=== PATIENT | female | born 1935 | race Caucasian/White ===

== ENCOUNTER 2017-03-24 04:13 | Emergency (ER) | payer OTHER ==
--- NOTE | 2017-03-24 04:25 | EDPHY ---
H & P Stated Complaint: sob Time Seen by Provider: 03/24/17 04:16 HPI/ROS: HPI The patient presents with shortness of breath which began about 1 hour prior to presentation. She said she awoke and was making her breakfast when she felt short of breath. She called 911. She said the shortness of breath started suddenly and has been constant. She uses Advair daily for COPD but denies having a prescription for albuterol. She does not have any chest pain, swelling in her legs, orthopnea. She has not had a cough, runny nose, sore throat. She says her COPD does get worse in the spring and fall.. REVIEW OF SYSTEMS Constitutional: No fever, no chills. Eyes: No discharge. ENT: No sore throat. Cardiovascular: No chest pain, no palpitations. Respiratory: No cough, positive for shortness of breath. Gastrointestinal: No abdominal pain, no vomiting. Genitourinary: No hematuria. Musculoskeletal: No back pain. Skin: No rashes. Neurological: No headache. PMHx: COPD PHYSICAL General Appearance: Alert, no distress Eyes: Pupils equal and round no pallor or injection ENT, Mouth: Mucous membranes moist Respiratory: There are no retractions, lungs are clear to auscultation Cardiovascular: Regular rate and rhythm Gastrointestinal: Abdomen is soft and non-tender, no masses, bowel sounds normal Neurological: A&O, moves all extremities Skin: Warm and dry, no rashes Musculoskeletal: Neck is supple non tender Extremities: symmetrical, full range of motion Psychiatric: Patient is oriented X 3, there is no agitation Source: Patient, EMS - Personal History Current Tetanus Diphtheria and Acellular Pertussis (TDAP): Unsure - Medical/Surgical History Hx Asthma: Yes Hx Chronic Respiratory Disease: No Hx Diabetes: No Hx Cardiac Disease: No Hx Renal Disease: No Hx Cirrhosis: No Hx Alcoholism: No Hx HIV/AIDS: No Hx Splenectomy or Spleen Trauma: No Other PMH: COPD, vaginal deliveries - Social History Smoking Status: Never smoked Constitutional: Initial Vital Signs Temperature (C) 36.8 C 03/24/17 04:18 Heart Rate 77 03/24/17 04:18 Respiratory Rate 16 03/24/17 04:18 Blood Pressure 187/93 H 03/24/17 04:18 O2 Sat (%) 95 03/24/17 04:18 O2 Delivery Mode Room Air Allergies/Adverse Reactions: Penicillins Allergy (Verified 03/24/17 04:17) Home Medications: Medication Instructions Recorded Flonase Nasal [place] 03/24/17 Medical Decision Making Differential Diagnosis: This is an 81-year-old female who presents from home, brought in by ambulance for an episode of shortness of breath which occurred this morning upon awakening. This is not associated with any wheezing, coughing, fever, chest pain, fluid overload. Differential diagnosis includes COPD exacerbation, asthma exacerbation, pneumonia. Doubt PE given no tachycardia or hypoxia. In the emergency department, the patient's blood pressure was elevated, she denies any history of hypertension. Patient was given a DuoNeb and afterwards was noted to be hyperventilating, she was given a dose of Ativan with improvement in her symptoms. Labs were checked and were unremarkable, chest x-ray showed no infiltrate. She was able to walk around the emergency department with no respiratory distress in the room air saturation of 94%. I feel she is suffering from a mild COPD exacerbation, possibly triggered by seasonal allergies. She will be discharged home with albuterol. I feel her exacerbation is mild enough that she does not require antibiotics or steroids. - Data Points Laboratory Results: Laboratory Results 03/24/17 04:12 03/24/17 04:12 03/24/17 03/24/17 04:12 04:12 WBC 25.35 10^3/uL H 10^3/uL (3.80-9.50) RBC 4.72 10^6/uL 10^6/uL (4.18-5.33) Hgb 13.1 g/dL g/dL (12.6-16.3) Hct 40.6 % % (38.0-47.0) MCV 86.0 fL fL (81.5-99.8) MCH 27.8 pg L pg (27.9-34.1) MCHC 32.3 g/dL L g/dL (32.4-36.7) RDW 15.9 % H % (11.5-15.2) Plt Count 132 10^3/uL L 10^3/uL (150-400) MPV 10.7 fL fL (8.7-11.7) Neut % (Auto) Not Reported Lymph % (Auto) Not Reported [place] % (Auto) Not Reported Eos % (Auto) Not Reported Baso % (Auto) Not Reported Nucleat RBC Rel Count 0.0 % % (0.0-0.2) Absolute Neuts (auto) Not Reported Absolute Lymphs (auto) Not Reported Absolute Monos (auto) Not Reported Absolute Eos (auto) Not Reported Absolute Basos (auto) Not Reported Absolute Nucleated RBC 0.00 10^3/uL 10^3/uL (0-0.01) Immature Gran % Not Reported Seg Neutrophils % 6 % % Band Neutrophils % 1 % % Lymphocytes % 92 % % Eosinophils % 1 % % Immature Gran # Not Reported Absolute Seg Neuts 1.52 10^/uL L 10^/uL (1.70-6.50) Absolute Band Neuts 0.25 10^3/uL 10^3/uL (0.00-0.70) Absolute Lymphocytes 23.32 10^3/uL H 10^3/uL (1.00-3.00) Absolute Eosinophils 0.25 10^3/uL 10^3/uL (0.03-0.40) RBC/WBC/PLT Morphology NORMAL (NORMAL) Atypical Lymphocytes 1+ H Platelet Estimate DECREASED L (ADEQ) Smear Review By Pending Sodium 141 mEq/L mEq/L (134-144) Potassium 4.3 mEq/L mEq/L (3.5-5.2) Chloride 107 mEq/L mEq/L (97-110) Carbon Dioxide 21 mEq/l L mEq/l (22-31) Anion Gap 13 mEq/L mEq/L (8-16) BUN 25 mg/dL H mg/dL (7-23) Creatinine 0.7 mg/dL mg/dL (0.6-1.0) Estimated GFR > 60 Glucose 95 mg/dL mg/dL (70-100) Calcium 9.9 mg/dL mg/dL (8.5-10.4) Total Bilirubin 0.5 mg/dL mg/dL (0.1-1.4) AST 34 IU/L IU/L (14-46) ALT 39 IU/L IU/L (9-52) Alkaline Phosphatase 66 IU/L IU/L (38-126) Total Protein 6.3 g/dL g/dL (6.3-8.2) Albumin 4.1 g/dL g/dL (3.5-5.0) Medications Given: Discontinued Medications Albuterol/Ipratropium (Duoneb) 3 ml IH EDNOW ONE Stop: 03/24/17 04:39 Last Admin: 03/24/17 04:46 Dose: 3 ml Lorazepam (Ativan Injection) 0.5 mg IVP EDNOW ONE Stop: 03/24/17 04:55 Last Admin: 03/24/17 04:55 Dose: 0.5 mg Departure - Departure Disposition: Home, Routine, Self-Care Clinical Impression: Chronic obstructive pulmonary disease with acute exacerbation Condition: Good Instructions: Albuterol (By breathing), Dyspnea (ED) Additional Instructions: Please return to the emergency room if your worse in any way. You can follow up with your regular doctor in 1-2 days as needed. Please take the albuterol as needed if you have any difficulty breathing. Use 1-2 puffs of the albuterol every 4-6 hours as needed for shortness of breath. Referrals: Patient,NotPresent [Unknown] - As per Instructions
[2017-03-24] MEDS ORDERED: IPRATROPIUM/ALBUTEROL 3 ML DEYVIAL IH ONE (04:38)
[2017-03-24 04:46] LABS: ADD MORPH? NO; ADD SCAN? YES; ATYPICAL LYMPHOCYTE FLAG 10 (0-99); FRAGMENT RBC FLAG 0 (0-99); HEMATOCRIT 40.6 % (38.0-47.0); HEMOGLOBIN 13.1 g/dL (12.6-16.3); LEFT SHIFT FLG 0 (0-99); LIPEMIA HEMOLYSIS FLAG 80 (0-99); MEAN CELL HEMOGLOBIN 27.8 pg (27.9-34.1); MEAN CELL HEMOGLOBIN CONCENTR. 32.3 g/dL (32.4-36.7); MEAN PLATELET VOLUME 10.7 fL (8.7-11.7); PLATELET CLUMPS FLAG 0 (0-99); PLATELET COUNT 132 10^3/uL (150-400); RED BLOOD CELL COUNT 4.72 10^6/uL (4.18-5.33); RED CELL DISTRIBUTION WIDTH 15.9 % (11.5-15.2)
[2017-03-24] MEDS ORDERED: LORazepam 2 MG/ML INJ ONE (04:52)
[2017-03-24 04:54] LABS: ALANINE AMINOTRANSFERASE 39 IU/L (9-52); ALBUMIN 4.1 g/dL (3.5-5.0); ALKALINE PHOSPHATASE 66 IU/L (38-126); ANION GAP 13 mEq/L (8-16); ASPARTATE AMINOTRANSFERASE 34 IU/L (14-46); BILIRUBIN,TOTAL 0.5 mg/dL (0.1-1.4); CALCIUM 9.9 mg/dL (8.5-10.4); CARBON DIOXIDE 21 mEq/l (22-31); CHLORIDE 107 mEq/L (97-110); CREATININE 0.7 mg/dL (0.6-1.0); GLOMERULAR FILTRATION RATE > 60; GLUCOSE 95 mg/dL (70-100); POTASSIUM 4.3 mEq/L (3.5-5.2); SODIUM 141 mEq/L (134-144); TOTAL PROTEIN 6.3 g/dL (6.3-8.2)
[2017-03-24] MEDS ORDERED: LORazepam 2 MG/ML INJ IVP ONE (04:54)
[2017-03-24 05:43] LABS: ADD DIFF? YES; SCAN POSITIVE
[2017-03-24 05:46] LABS: PLATELET ESTIMATE DECREASED (ADEQ)
[2017-03-24] MEDS ORDERED: ALBUTEROL INH PREPACK MDI TAKEHOME ONE (05:47)
[2017-03-24 06:52] VITALS: BP 151/77; PULSE 94; RESP 18; TEMP 97.9; O2SAT 95
== END 2017-03-24 07:12 | disposition home or self-care (01) ==
LOC: EDUNIT#
DX: J44.1 Chronic obstructive pulmonary disease with (acute) exacerbation (principal)
CPT/HCPCS: 71020; 96374; 99284; J2060

== ENCOUNTER 2017-05-09 07:09 | Emergency (ER) | payer OTHER ==
[2017-05-09 07:14] VITALS: O2SAT 93
--- NOTE | 2017-05-09 07:29 | EDPHY ---
H & P Time Seen by Provider: 05/09/17 07:28 HPI/ROS: CHIEF COMPLAINT: Right hip pain HISTORY OF PRESENT ILLNESS: Patient had a fall 5 days ago, presents with worsening pain in the right hip. She lost her balance getting up off the bed and caught herself but did not actually fall or impact the ground. She saw Pérez Cortes her primary care provider yesterday but today the pain is worse. She is still able to walk and is using topical ice application, and has adequate pain control but still had symptoms. A little bit worse with walking. Does not radiate. Started just after her fall. REVIEW OF SYSTEMS: Eye: no change in vision ENT: no sore throat Cardiac: No chest pain Pulmonary: Not short of breath Abdomen: No vomiting or diarrhea Musculoskeletal: HPI Skin: no rash Neuro: No weakness or numbness in the right leg or foot Constitutional: no fever : no urinary symptoms A comprehensive 10 point review of systems is otherwise negative aside from elements mentioned in the history of present illness. PAST MEDICAL HISTORY: COPD Social history: Here with her son General Appearance: Alert and conversant, cooperative. Eyes: No scleral icterus. ENT, Mouth: Normal mucous membranes. Respiratory: Normal respiratory effort, breath sounds equal, lungs are clear to auscultation. Cardiovascular: Regular rate and rhythm. Normal right foot dorsalis pedis pulse. Gastrointestinal: Abdomen is soft and non tender. No inguinal bulge or hernia palpated. Neurological: Alert and oriented x3. Normally conversant. Face symmetric, normal movement and sensation in all extremities. Normal dorsiflexion and plantar flexion of the right foot. Toes downgoing bilaterally. Skin: Warm and dry, no rashes. No laceration over the area of injury. No bruising visible. No redness or lymphangitis. Not warm to the touch. Musculoskeletal: No tenderness to pelvic compression. No bony tenderness on either lower extremity. No right hip pain on rotation or axial loading. She has some tenderness to palpation in the muscles of the right gluteal region. Compartments in the right leg are soft. Psychiatric: Not agitated. Emergency Department course/MDM: Right hip x-ray personally interpreted as normal. Clinical exam does not lead to high suspicion for occult fracture she does not have right hip pain with rotation or axial loading. Likely has muscle strain in the right gluteal region. Symptomatic treatment discussed including ice, acetaminophen, okay to use lidocaine patches which she has at home from a previous injury. Heart rate 100, likely due to discomfort from pain. Patient and son would like to go home which I think is reasonable. Smoking Status: Never smoked Constitutional: Initial Vital Signs Temperature (C) 37.1 C 05/09/17 07:12 Heart Rate 113 H 05/09/17 07:12 Respiratory Rate 16 05/09/17 07:12 Blood Pressure 141/86 H 05/09/17 07:12 O2 Sat (%) 93 05/09/17 07:12 O2 Delivery Mode Room Air Allergies/Adverse Reactions: Penicillins Allergy (Verified 05/09/17 07:15) Home Medications: Medication Instructions Recorded Advair 05/09/17 Sleeping Aid 05/09/17 Medical Decision Making - Diagnostics Imaging Results: Imaging Impressions Hip X-Ray 05/09/17 07:29 Impression: No right hip fracture identified. Differential Diagnosis: Differential considered including but not limited to hip fracture, femur fracture, hip contusion, muscle strain, compartment syndrome, sciatica, septic joint. Departure - Departure Disposition: Home, Routine, Self-Care Clinical Impression: Strain of muscle of right hip Qualifiers: Encounter type: initial encounter Qualified Code(s): S76.011A - Strain of muscle, fascia and tendon of right hip, initial encounter Condition: Good Instructions: Muscle Strain (ED) Additional Instructions: OK to use your lidocaine patches as discussed, which you have. Followup with Pérez Cortes in 48-72 hours if still symptomatic. Referrals: Pérez Cortes PA [Primary Care Provider] - As per Instructions
[2017-05-09 08:28] VITALS: BP 155/102; PULSE 100; RESP 18; TEMP 97.2
== END 2017-05-09 08:32 | disposition home or self-care (01) ==
DX: S76.011A Strain of muscle, fascia and tendon of right hip, initial encounter (principal); W06.XXXA Fall from bed, initial encounter; Y99.8 Other external cause status; Y93.89 Activity, other specified; J44.9 Chronic obstructive pulmonary disease, unspecified

== ENCOUNTER 2017-07-15 09:22 | Inpatient (IN) | payer OTHER ==
--- NOTE | 2017-07-15 09:33 | EDPHY ---
H & P Time Seen by Provider: 07/15/17 09:22 HPI/ROS: CHIEF COMPLAINT: Altered mental status HISTORY OF PRESENT ILLNESS: Patient arrives by EMS with decreased mentation today. Apparently she fell yesterday. Patient has only complaints of feeling comfortable and chest and little bit of trouble breathing. On arrival oxygen saturation is 80s. Previously interview systems unobtainable because of the patient's decreased mentation. REVIEW OF SYSTEMS: ENT: no sore throat Cardiac: no chest pain or syncope Pulmonary: HI no cough Abdomen: no vomiting, diarrhea, abdominal pain Musculoskeletal: no back pain neck pain Skin: no rash ROS otherwise unobtainable because of decreased mentation PAST MEDICAL HISTORY: [facility] includes chronic leukemia, anemia, COPD, osteoporosis. Social history: Son and grandson here with the patient shortly after arrival General Appearance: Alert and conversant, cooperative. Eyes: No scleral icterus. ENT, Mouth: Dry mucous membranes Respiratory: Tachypneic bilateral rhonchi Cardiovascular: Regular rate and rhythm. Tachycardic. Gastrointestinal: Abdomen is soft and non tender. Neurological: Alert, face symmetric. Generally weak all over but can move extremities. Skin: Warm and dry, no rashes. Musculoskeletal: No peripheral edema. Lower cervical spine tender palpation others no extremity or spinal tenderness. Psychiatric: Not agitated. Emergency Department course/MDM: Patient appears quite ill. Supplemental oxygen applied for hypoxemia. Plan for CT of the head cervical spine with a fall and altered mental status and a little bit neck tenderness to palpation. Chest x-ray and labs to include sepsis screen. 1054: Head and cervical spine negative per Dr. Gaspar, results discussed with the patient's son, cervical spine cleared clinically at this time. She is clear she does not want mechanical ventilation or central line placement or any interventional procedures. She would like a trial of IV fluids oxygen and antibiotics. Fluid hydration, IV Levaquin, admission to her primary care practice. Does not appear to have severe sepsis or septic shock. Does meet SIRS sepsis criteria. Smoking Status: Never smoked Constitutional: Initial Vital Signs Temperature (C) 36.7 C 07/15/17 09:39 Heart Rate 132 H 07/15/17 09:39 Respiratory Rate 26 H 07/15/17 09:39 Blood Pressure 201/118 H 07/15/17 09:39 O2 Sat (%) 82 L 07/15/17 09:39 O2 Delivery Mode Nasal [place] O2 (L/minute) 4 Allergies/Adverse Reactions: Penicillins Allergy (Verified 05/09/17 07:15) Home Medications: Medication Instructions Recorded Acetaminophen [Tylenol 325mg (*)] 650 mg PO Q4H PRN MDD 4 gm 07/15/17 Calcium Carbonate [Tums 500MG (*)] 500 mg PO DAILY 07/15/17 Cyanocobalamin [Vitamin B12 (*)] 1,000 mcg PO DAILY 07/15/17 Diazepam [Valium 2 MG (*)] 2 mg PO Q12H PRN 07/15/17 FOLIC ACID 0.4 mg PO DAILY 07/15/17 Fluticasone Nasal [Flonase Nasal 1 sprays [place] DAILY 07/15/17 [place] (RX)] Fluticasone/Salmeter 250/50Mcg 1 puffs IH BID 07/15/17 [Advair 250/50 (*)] Hydrocodone/Acetaminophen [[place] 0.5 each PO Q8H PRN 07/15/17 5/325 (*)] Lidocaine 5% [Lidoderm 5% Patch 1 ea TD DAILY 07/15/17 (*)] OLANZapine [Zyprexa] 15 mg PO HS 07/15/17 [place]-3 Fatty Acids [Fish Oil 1000 1,000 mg PO DAILY 07/15/17 mg (*)] Patch Removal 1 ea TD DAILY@199907/15/17 Sennosides [Senna Lax] 8.6 mg PO DAILY 07/15/17 Zinc Gluconate [Zinc Chelated 50mg 50 mg PO DAILY 07/15/17 (*)] Medical Decision Making - Diagnostics EKG Interpretation: 12-lead EKG interpreted by me; official reading is in trace master. My interpretation is sinus tachycardia with APCs and left anterior fascicular block , LVH Imaging Results: Imaging Impressions Cervical Spine CT 07/15/17 09:34 Impression: 1. No definite intracranial hemorrhage. 2. Elderly brain with atrophy and probable white matter small vessel disease. CT Cervical Spine Without Contrast History: Trauma, neck pain. Technique: Multislice helical CT through the cervical spine without contrast from the skull base to T1. Soft tissue and bone evaluation is performed. Sagittal and coronal reconstructions are obtained and reviewed. Dose reduction techniques were utilized. Findings: Cervical alignment is anatomic. No fracture or dislocation is identified. The relationship between skull base and C1 is normal. The C1-C2 articulation is normal. The odontoid process is normal. The cervical thoracic junction is normal. Apical pleural thickening is noted on the right side. Soft tissue window evaluation does not show evidence of epidural or prevertebral hematoma. Multilevel degenerative changes are seen with disk space loss and bony hypertrophy. Impression: 1. Negative for fracture. 2. Multilevel spondylosis. 3. Apical pleural thickening on the right side. Results called and discussed with LAURA ACPUTO M.D. on 07/15/2017 10:49 Chest X-Ray 07/15/17 09:34 Impression: 1. Development of left lower lobe pneumonia superimposed upon presumed COPD. 2. Increase in compression deformity of T11. Results called and discussed with LAURA CAPUTO M.D. on 07/15/2017 at 10:[address] 07/15/17 09:34 Impression: 1. No definite intracranial hemorrhage. 2. Elderly brain with atrophy and probable white matter small vessel disease. CT Cervical Spine Without Contrast History: Trauma, neck pain. Technique: Multislice helical CT through the cervical spine without contrast from the skull base to T1. Soft tissue and bone evaluation is performed. Sagittal and coronal reconstructions are obtained and reviewed. Dose reduction techniques were utilized. Findings: Cervical alignment is anatomic. No fracture or dislocation is identified. The relationship between skull base and C1 is normal. The C1-C2 articulation is normal. The odontoid process is normal. The cervical thoracic junction is normal. Apical pleural thickening is noted on the right side. Soft tissue window evaluation does not show evidence of epidural or prevertebral hematoma. Multilevel degenerative changes are seen with disk space loss and bony hypertrophy. Impression: 1. Negative for fracture. 2. Multilevel spondylosis. 3. Apical pleural thickening on the right side. Results called and discussed with LAURA CAPUTO M.D. on 07/15/2017 10:49 Differential Diagnosis: Differential considered including but not limited to UTI, pneumonia, intracranial bleed, metabolic abnormality. Consult/Admit Bed Type: [place] [id number] Critical Care Time: Critical care time spent by me, Dr. Caputo, exclusively with the care of this patient was 30 minutes, exclusive of PA or [employer] time and exclusive of separate procedures. The organ system at risk was infectious and I ordered IV fluids, multiple diagnostic, supplemental oxygen, IV antibiotics, consultation with admitting provider to stabilize the patient and prevent worsening of the patient 's condition. - Data Points Laboratory Results: Laboratory Results 07/15/17 09:30 07/15/17 09:30 07/15/17 07/15/17 07/15/17 09:40 09:30 09:30 WBC RBC Hgb Hct MCV MCH MCHC RDW Plt Count MPV Neut % (Auto) Lymph % (Auto) [place] % (Auto) Eos % (Auto) Baso % (Auto) Nucleat RBC Rel Count Absolute Neuts (auto) Absolute Lymphs (auto) Absolute Monos (auto) Absolute Eos (auto) Absolute Basos (auto) Absolute Nucleated RBC Immature Gran % Immature Gran # PT 14.8 SEC SEC (12.0-15.0) INR 1.14 (0.83-1.16) APTT 23.9 SEC SEC (23.0-38.0) VBG Lactic Acid 1.2 mmol/L mmol/L (0.7-2.1) Sodium 142 mEq/L mEq/L (134-144) Potassium 3.7 mEq/L mEq/L (3.5-5.2) Chloride 99 mEq/L mEq/L (97-110) Carbon Dioxide 25 mEq/l mEq/l (22-31) Anion Gap 18 mEq/L H mEq/L (8-16) BUN 19 mg/dL mg/dL (7-23) Creatinine 0.7 mg/dL mg/dL (0.6-1.0) Estimated GFR > 60 Glucose 139 mg/dL H mg/dL (70-100) Calcium 9.5 mg/dL mg/dL (8.5-10.4) Total Bilirubin 1.0 mg/dL mg/dL (0.1-1.4) 07/15/17 09:30 WBC 18.04 10^3/uL H 10^3/uL (3.80-9.50) RBC 4.69 10^6/uL 10^6/uL (4.18-5.33) Hgb 13.7 g/dL g/dL (12.6-16.3) Hct 40.4 % % (38.0-47.0) MCV 86.1 fL fL (81.5-99.8) MCH 29.2 pg pg (27.9-34.1) MCHC 33.9 g/dL g/dL (32.4-36.7) RDW 14.2 % % (11.5-15.2) Plt Count 114 10^3/uL L 10^3/uL (150-400) MPV 11.2 fL fL (8.7-11.7) Neut % (Auto) 56.7 % % (39.3-74.2) Lymph % (Auto) 33.6 % % (15.0-45.0) [place] % (Auto) 8.8 % % (4.5-13.0) Eos % (Auto) 0.0 % L % (0.6-7.6) Baso % (Auto) 0.2 % L % (0.3-1.7) Nucleat RBC Rel Count 0.0 % % (0.0-0.2) Absolute Neuts (auto) 10.23 10^3/uL H 10^3/uL (1.70-6.50) Absolute Lymphs (auto) 6.06 10^3/uL H 10^3/uL (1.00-3.00) Absolute Monos (auto) 1.59 10^3/uL H 10^3/uL (0.30-0.80) Absolute Eos (auto) 0.00 10^3/uL L 10^3/uL (0.03-0.40) Absolute Basos (auto) 0.03 10^3/uL 10^3/uL (0.02-0.10) Absolute Nucleated RBC 0.00 10^3/uL 10^3/uL (0-0.01) Immature Gran % 0.7 % % (0.0-1.1) Immature Gran # 0.13 10^3/uL H 10^3/uL (0.00-0.10) PT INR APTT VBG Lactic Acid Sodium Potassium Chloride Carbon Dioxide Anion Gap BUN Creatinine Estimated GFR Glucose Calcium Total Bilirubin Medications Given: Acetaminophen (Tylenol) 650 mg PO Q4HRS PRN PRN Reason: Pain, Mild/Fever, Can Take PO Stop: 01/11/18 11:54 Last Admin: 07/15/17 14:02 Dose: 650 mg Albuterol/Ipratropium (Duoneb) 3 ml IH QID BRIA Stop: 01/11/18 11:59 Last Admin: 07/15/17 12:21 Dose: Not Given Apixaban (Eliquis) 5 mg PO BID BRIA Stop: 01/11/18 11:59 Last Admin: 07/15/17 14:02 Dose: 5 mg Lidocaine (Lidoderm 5%) 1 ea TD DAILY BRIA Stop: 01/11/18 11:59 Last Admin: 07/15/17 12:44 Dose: 1 ea Discontinued Medications Albuterol/Ipratropium (Duoneb) 3 ml IH EDNOW ONE Stop: 07/15/17 09:35 Last Admin: 07/15/17 09:47 Dose: 3 ml Levofloxacin/Dextrose (Levaquin 750 Mg (Premix)) 150 mls @ 100 mls/hr IV EDNOW ONE PRN Reason: Protocol Stop: 07/15/17 12:26 Last Admin: 07/15/17 11:21 Dose: 150 mls Sodium Chloride (Ns) 1,800 mls @ 3,600 mls/hr 30 ml/kg infuse over 30 min ( 1800 ml) IV EDNOW ONE PRN Reason: Protocol Stop: 07/15/17 11:26 Last Admin: 07/15/17 11:21 Dose: 1,800 mls Departure - Departure Disposition: [facility] Inpatient Acute Clinical Impression: Pneumonia Qualifiers: Pneumonia type: due to unspecified organism Laterality: left Lung location: lower lobe of lung Qualified Code(s): J18.1 - Lobar pneumonia, unspecified organism Condition: Serious
[2017-07-15] MEDS ORDERED: IPRATROPIUM/ALBUTEROL 3 ML DEYVIAL IH ONE (09:34)
[2017-07-15 09:45] LABS: PLATELET COUNT 114 10^3/uL (150-400)
[2017-07-15 09:58] LABS: INR 1.14 (0.83-1.16); PROTIME(PATIENT) 14.8 SEC (12.0-15.0)
--- NOTE | 2017-07-15 10:28 | CPEKG ---
Heart Rate: 118 RR Interval: 508 P-R Interval: 148 QRSD Interval: 104 QT Interval: 336 QTC Interval: 471 P [place]: 74 QRS [place]: -69 T Wave [place]: 93 EKG Severity - ABNORMAL ECG - EKG Impression: SINUS TACHYCARDIA EKG Impression: ATRIAL PREMATURE COMPLEX EKG Impression: LEFT ANTERIOR FASCICULAR BLOCK EKG Impression: PROBABLE LVH WITH SECONDARY REPOL ABNRM Electronically Signed By: Shiv Thomas 15-Jul-2017 13:00:45
[2017-07-15] MEDS ORDERED: NS 1,800 ML IV ONE (10:57)
[2017-07-15] MEDS ORDERED: ONDANSETRON 4 MG/2 ML VIAL IVP PRN (11:55)
[2017-07-15] MEDS ORDERED: diphenhydrAMINE 25 MG CAP PO PRN (11:55)
[2017-07-15] MEDS ORDERED: IBUPROFEN 200 MG TAB PO PRN (11:55)
[2017-07-15] MEDS ORDERED: LORazepam 0.5 MG TAB PO PRN (11:55)
[2017-07-15] MEDS ORDERED: ONDANSETRON DISINTEGRATING 4 MG TAB PO PRN (11:55)
[2017-07-15] MEDS ORDERED: oxyCODONE IR 5 MG TAB PO PRN (11:55)
[2017-07-15] MEDS ORDERED: HYDROCODONE/APAP 5/325 TAB PO PRN (11:59)
[2017-07-15] MEDS ORDERED: DIAZEPAM 2 MG TAB PO PRN (11:59)
[2017-07-15] MEDS ORDERED: NS 1,000 ML IV SCH (12:00)
--- NOTE | 2017-07-15 12:06 | SOAPPROG ---
SOAP Progress Note Assessment/Plan: Assessment: Plan: 07/15/17 12:06 pna--she looked quite sick 2 hours ago, but has responded well to fluids and antibiotics. Culture pending. Lactic acid nl range. 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 lymphocyte count down now with acute bacterial pna advanced directives--DNR h/o DVT and PE, known CLL and poss a fib. will resume anticoag in the form of Eliquis 5 mg BID Challenges of situation discussed with patient, son and grandson. Subjective: Patient has developed sudden weakness and shakes today. She was brought into the ER today by ambulance from [facility]. She states she participated in exercise class yesterday. She admits to a fall from reduced balance suddenly while walking yesterday. She denies cough. Shakiness has improved since starting fluids and IV antibiotics. Right buttock pain is somewhat symptomatic. She is hungry now. No n/v/d Objective: Vital Signs Temp Pulse Resp BP Pulse Ox 36.9 C 109 H 20 122/78 H 18 L 07/15/17 11:47 07/15/17 11:47 07/15/17 10:56 07/15/17 11:47 07/15/17 11:47 07/14/17 07/15/17 07/16/17 05:59 05:59 05:59 Intake Total 1800 Output Total 150 Balance 1650 PT 14.8 SEC (12.0-15.0) 07/15/17 09:30 INR 1.14 (0.83-1.16) 07/15/17 09:30 Gen: pleasant, elderly, looks a bit pale. Son Asim and grandson are at bedside HEENT: food in teeth, neck without masses, no gross head/neck trauma noted Lungs: diminished BS in bases. Cough effort is minimal. Heart: tachy with some irregularity Abd + bs, soft, nt, nd Joints without acute effusion/warmth Skin: some tears/bruising LE's without edema WBC 18 K neutrophil percentage increased from baseline temp mildly elevated CXR with LLL pna poss empyema vs infiltrate with effusion EKG tachy probable sinus ICD10 Worksheet Patient Problems: Problems Problem Status Onset Pneumonia Acute
[2017-07-15] MEDS: IPRATROPIUM/ALBUTEROL 3 ML DEYVIAL IH SCH ×3 (12:21→21:51)
[2017-07-15] MEDS: LIDOCAINE 5% 1 EA PATCH TD SCH (12:44)
--- NOTE | 2017-07-15 13:02 | GHP ---
[f rep st] HISTORY AND PHYSICAL DATE OF ADMISSION: 07/15/2017 REASON FOR ADMISSION: Pneumonia. HISTORY OF PRESENT ILLNESS: The patient is an 81-year-old female who lives in assisted living at a [facility], who was brought in by ambulance today due to acute weakness. She states she was abl e to participate in exercise class yesterday. She states that when she was walking with her walker y day, she suddenly was off-balance and kind of fell into the wall. Today, she has been weak and shaky. Given evidence of acute infection, she was brought to the emergency room. In speaking with Debra Thomas, she was initially quite ill and possibly qualified as septic. She has fortunately responded quite nicely to IV fluids and antibiotics. Her rigors have improved. Her lactic acid has been in t he normal range. Her blood cultures are pending. She was able to describe her history fairly well. Her son and grandson are at bedside, who corroborate her story. She does not feel short of breath. She has not had any particular cough. She denies nausea, vomiting, or diarrhea. She pleasantly adm its that she is hungry. She denies any head or neck pain after her fall from yesterday. 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 Some short-term memor y loss, which is well supported with extended care from [place] assisted living. Chronic lymphocytic leukemia, with long-term stability. Anxiety. Underweight status. 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 Most recently, she was on Xarelto. She had a fall with tear of gluteal muscles a couple of months ago. This still gives her some pain in her right buttock region. MEDICATIONS: Olanzapine 15 mg nightly and supplements as listed per chart. ALLERGIES: Noted as penicillin. RESUSCITATIVE STATUS: DNR. SURGICAL HISTORY: Noncontributory. FAMILY HISTORY: Noncontributory. REVIEW OF SYSTEMS: GENERAL: Weakness as of today. She denies any specific fever. She did have chi lls and shakes today. No headache. No visual changes. No nasal congestion. No sore throat. No ac ted dental complaints. She states she did have breakfast today. No ear pain or soreness. No neck p ain or range of motion restrictions. LUNGS: She denies any particular shortness of breath, cough, w heeze, or congestion. HEART: No chest pain or palpitations. GI: No acute symptoms as per HPI. UR INARY: No complaints. SKIN: She has had some bruising and some skin tears from recent falls. EXTR EMITIES: No joint pain that is new or acute. No unusual swelling. PHYSICAL EXAMINATION: VITAL SIGNS: Initial blood pressure 180/102, heart rate 118, saturation 99% o n room air, temperature maximally in the ER 37.6, blood pressure currently 122/78, heart rate in the 100-130 range, saturation in the mid to upper 90s with supportive oxygen of 4 L, repeat temperature 3 6.9 degrees. GENERAL: Pleasant elderly female, somewhat pale in appearance and somewhat anxious in appearance. HEENT: Pupils are symmetric. Head without clear evidence of trauma. There is food elizabeth ris in her teeth. Oropharynx otherwise benign. Mouth is somewhat dry. NECK: Without evidence of un usual tenderness and without other masses. LUNGS: Diminished breath sounds. Her cough effort is fa irly minimal. No unusual rhonchi are appreciated. Perhaps some crackles in the bases. HEART: Tach y, somewhat irregular rhythm. No ability to appreciate a murmur in the ER setting. ABDOMEN: Positi ve bowel sounds. Soft, nontender, nondistended. No guarding, rebound, or masses. SKIN: Somewhat w arm to touch, particularly on her back. EXTREMITIES: Some bruises and skin tears are noted on her u pper extremities. Lower extremities with stigmata of old bruising. There is no edema. 2/4 DP pulse s are pleasantly palpable. DIAGNOSTIC DATA: Chest x-ray shows left lower lobe pneumonia, with effusion versus potential empyema . EKG reported as sinus tach. Potential underlying AFib is not too unreasonable to suspect. LABORATORY DATA: Her blood work shows an elevated white count at 18,000, with absolute neutrophils o f 10,000. Her hemoglobin is stable. Platelets low at 114. INR 1.14. Blood gas: Lactic acid 1.2. Metabolic panel: No acute abnormalities. Glucose is 139. Urine is unremarkable. ASSESSMENT: 1. Acute pneumonia, with probable attempt at becoming somewhat bacteremic. She has responded well t o fluids and antibiotics. She is currently without rigors. Her lactic acid level was normal. She i s a DNR. We discussed the findings in her lungs as potentially representing an empyema that might po tentially need further intervention if desired by the patient and family. Currently, she seems to be stabilized. We will continue with fluids and Levaquin daily. We will continue nebulizers, given he r underlying chronic lung disease. 2. Chronic loida. Stable with olanzapine. Continue. 3. History of deep vein thrombosis and pulmonary embolism. She has underlying chronic lymphocytic l eukemia, now with acute pneumonia and potentially some intermittent atrial fibrillation. We will res ume Eliquis at 5 mg b.i.d. She has tolerated oral anticoagulants well in the past. 4. Advance directives. She is a DNR. This was discussed with the patient and son. They are all in agreement. We will avoid heroic efforts. If a chest tube is potentially needed, we will discuss th is further to drain infection. We will follow the patient's directions closely and tailor the therap y appropriately as desired by her predetermined advance directives, as well as her course and respons e to therapy. /[id number]/MODL
[2017-07-15] MEDS: ACETAMINOPHEN 325 MG TAB PO PRN (14:02)
[2017-07-15] MEDS: APIXABAN 5 MG TAB PO SCH ×2 (14:02→19:54)
[2017-07-15] MEDS: OLANZapine 10 MG TAB PO SCH (19:55)
[2017-07-15] MEDS: PATCH REMOVAL 1 EA PATCH TD SCH (20:04)
[2017-07-15] MEDS ORDERED: OLANZAPINE 15 MG PO SCH (21:00)
[2017-07-15] MEDS: FLUTICASONE/SALMETER 250/50MCG DISKUS IH SCH (21:55)
[2017-07-16 05:10] LABS: PLATELET COUNT 98 10^3/uL (150-400)
[2017-07-16] MEDS: IPRATROPIUM/ALBUTEROL 3 ML DEYVIAL IH SCH ×4 (06:10→21:05)
[2017-07-16] MEDS: ZINC GLUCONATE 50 MG TAB PO SCH (08:31)
[2017-07-16] MEDS: SENNOSIDES 1 TAB PO SCH (08:31)
[2017-07-16] MEDS: LIDOCAINE 5% 1 EA PATCH TD SCH (08:31)
[2017-07-16] MEDS: FOLIC ACID 1 MG TAB PO SCH (08:31)
[2017-07-16] MEDS: APIXABAN 5 MG TAB PO SCH ×2 (08:31→19:53)
[2017-07-16] MEDS ORDERED: POTASSIUM CL 20 MEQ TAB PO ONE (08:33)
[2017-07-16] MEDS ORDERED: FOLIC ACID 0.4 MG PO SCH (09:00)
[2017-07-16] MEDS: POTASSIUM Cl (KCl) 20 MEQ in NS 1,000 ML IV SCH (09:45)
[2017-07-16] MEDS: FLUTICASONE NASAL 120 SPRAYS/16 GM MDI EACHNARE SCH (10:29)
[2017-07-16] MEDS: FLUTICASONE/SALMETER 250/50MCG DISKUS IH SCH ×2 (10:33→19:56)
--- NOTE | 2017-07-16 11:24 | ASMTCMCOM ---
CM Note CM Note Notes: Pt admitted w/PNA, possible empyema. She lives at [facility], has local son and grandson. DC needs not clear yet, awaiting therapy recommendations. Date Signed: 07/16/2017 11:24 AM Electronically Signed By:Cielo Huff RN
--- NOTE | 2017-07-16 12:26 | SOAPPROG ---
SOAP Progress Note Assessment/Plan: Assessment: 81 yo female w/PNA w/ ? of empyema - repeat cxr pending - attempt made earlier w / wheelchair and pt too fatigued, will return for bedside, cont on levaquin, wbc greatly improved (lymph is elev at baseline w/ CLL). -CLL- stable -some confusion - per son she is much better than yesterday, acute illness contributing, will cont re assess. -h/o dvt/pe - on eliquis, also w/ ? of PAF will protect w/ eliquis. -DNR status - son aware of goals and situation w/ current pna and possible empyema and what may need to transpire if she does not improve. Will continue to discuss w/ family as this evolves. -loida - cont on olanzapine. Plan: 07/16/17 12:21 Subjective: c/o being hungry, easily fatigued Objective: Vital Signs Temp Pulse Resp BP Pulse Ox 36.5 C 102 H 18 131/74 H 94 07/16/17 11:38 07/16/17 11:38 07/16/17 11:38 07/16/17 11:38 07/16/17 11:38 Microbiology 07/15/17 22:00 Respiratory Panel (PCR) - Final Nasal, Sinus - Swab No Organism Detected Laboratory Results 07/16/17 04:53 07/16/17 04:53 07/15/17 07/16/17 07/17/17 05:59 05:59 05:59 Intake Total 3150 Output Total 2100 Balance 1050 PT 14.8 SEC (12.0-15.0) 07/15/17 09:30 INR 1.14 (0.83-1.16) 07/15/17 09:30 Gen: pleasant, appropriate w/ conversation, son at bedside, has some short term memory loss/confusion Heent: nasal cannula in place NEcK: soft/supple Chest: cta b Cv: RRR currently but has been intermittently tachy Abd: soft nt nd Ext: 2+ pulses ble, no edema ICD10 Worksheet Patient Problems: Problems Problem Status Onset Pneumonia Acute
[2017-07-16] MEDS: ACETAMINOPHEN 325 MG TAB PO PRN (14:17)
[2017-07-16] MEDS: OLANZapine 10 MG TAB PO SCH (19:53)
[2017-07-16] MEDS: PATCH REMOVAL 1 EA PATCH TD SCH (19:57)
[2017-07-17] MEDS: POTASSIUM Cl (KCl) 20 MEQ in NS 1,000 ML IV SCH (03:17)
--- NOTE | 2017-07-17 05:25 | CPEKG ---
Heart Rate: 135 RR Interval: 444 QRSD Interval: 98 QT Interval: 316 QTC Interval: 474 QRS [place]: -50 T Wave [place]: 105 EKG Severity - ABNORMAL ECG - EKG Impression: ATRIAL FIBRILLATION EKG Impression: LEFT ANTERIOR FASCICULAR BLOCK EKG Impression: LVH WITH SECONDARY REPOLARIZATION ABNORMALITY EKG Impression: ANTERIOR Q WAVES, POSSIBLY DUE TO LVH EKG Impression: ATRIAL FIBRILLATION IS NEW IN COMPARISON TO PRIOR ECG Electronically Signed By: Péerz Whiting 18-Jul-2017 13:54:54
[2017-07-17] MEDS ORDERED: METOPROLOL TARTRATE 5 MG/5 ML INJ IVP ONE (05:45)
[2017-07-17] MEDS: IPRATROPIUM/ALBUTEROL 3 ML DEYVIAL IH SCH ×4 (05:51→19:59)
[2017-07-17 05:55] LABS: PLATELET COUNT 107 10^3/uL (150-400)
[2017-07-17] MEDS: LIDOCAINE 5% 1 EA PATCH TD SCH ×2 (08:25→08:56)
[2017-07-17] MEDS: ZINC GLUCONATE 50 MG TAB PO SCH ×2 (08:26→08:56)
[2017-07-17] MEDS: SENNOSIDES 1 TAB PO SCH ×2 (08:26→08:56)
[2017-07-17] MEDS: FOLIC ACID 1 MG TAB PO SCH ×2 (08:26→08:56)
[2017-07-17] MEDS: APIXABAN 5 MG TAB PO SCH ×3 (08:26→11:32)
--- NOTE | 2017-07-17 08:51 | SOAPPROG ---
SOAP Progress Note Assessment/Plan: Assessment: Plan: 07/15/17 12:06 pna--she looked quite sick 2 hours ago, but has responded well to fluids and antibiotics. Culture pending. Lactic acid nl range. Poss empyema, will follow CXR and response to atbx chronic dahiana--stable will olanzapine mild STM loss--follow, expect confusion to be increase with acute illness CLL--long winder tender stability. lymphocyte count down now with acute bacterial pna advanced directives--DNR h/o DVT and PE, known CLL and poss a fib. will resume anticoag in the form of Eliquis 5 mg BID Challenges of situation discussed with patient, son and grandson. 07/17/17 08:51 pneumonia--still problematic, low temp this am. BC's pending from less than 48 hours ago. BP stable but lower after IV lopressor a fib with RVR, some of this suspected from ER, rate improved with IV lopressor. PO dilt ordered, swallowing brought into question, may need dilt drip. Transfer to PCU Dahiana--well controlled on olanzapine, with will need to be continued swallowing challenges--ST eval CLL--stable Subjective: Shonna complains of left sided chest pain. It doesn't come and go. Deep breathing hurts more. Mild SOB. No n/v. She ate well yesterday, but nursing staff reports difficulty swallowing pills this am. No BM in days Objective: Vital Signs Temp Pulse Resp BP Pulse Ox 37.5 C 95 26 H 111/61 95 07/17/17 08:00 07/17/17 08:00 07/17/17 08:00 07/17/17 08:00 07/17/17 08:00 Microbiology 07/15/17 22:00 Respiratory Panel (PCR) - Final Nasal, Sinus - Swab No Organism Detected Laboratory Results 07/17/17 05:30 07/17/17 05:30 07/16/17 07/17/17 07/18/17 05:59 05:59 05:59 Intake Total 3150 300 Output Total 2100 1050 Balance 1050 -750 PT 14.8 SEC (12.0-15.0) 07/15/17 09:30 INR 1.14 (0.83-1.16) 07/15/17 09:30 Gen: tired, weak, somewhat uncomfortable, improves with conversation Lungs: minimal ability to cough on command (not new) breath sounds diminished, some basilar coarseness. Bruising left lower lateral posterior chest wall at area of described chest pain Heart: currently HR in 90's a fib with RVR this am. improved with IVP lopressor Abd + bs soft, NT, ND Le's stable WBC improved (known CLL) platelets low but stable BMP fine trop negative ICD10 Worksheet Patient Problems: Problems Problem Status Onset Pneumonia Acute
[2017-07-17] MEDS: FLUTICASONE NASAL 120 SPRAYS/16 GM MDI EACHNARE SCH (08:55)
[2017-07-17] MEDS: FLUTICASONE/SALMETER 250/50MCG DISKUS IH SCH ×2 (09:13→20:01)
[2017-07-17] MEDS: DILTIAZEM 30 MG TAB PO SCH ×3 (11:32→22:55)
[2017-07-17] MEDS: ACETAMINOPHEN 325 MG TAB PO PRN ×2 (16:12→20:13)
[2017-07-17] MEDS: OLANZapine 10 MG TAB PO SCH (19:38)
[2017-07-17] MEDS: APIXABAN 2.5 MG TAB PO SCH (19:39)
[2017-07-17] MEDS: PATCH REMOVAL 1 EA PATCH TD SCH (19:40)
[2017-07-18 04:25] LABS: PLATELET COUNT 130 10^3/uL (150-400)
[2017-07-18] MEDS: DILTIAZEM 30 MG TAB PO SCH ×4 (05:40→23:23)
[2017-07-18] MEDS: IPRATROPIUM/ALBUTEROL 3 ML DEYVIAL IH SCH ×4 (05:43→20:13)
[2017-07-18] MEDS: ACETAMINOPHEN 325 MG TAB PO PRN ×3 (06:25→23:25)
[2017-07-18] MEDS: SENNOSIDES 1 TAB PO SCH (08:39)
[2017-07-18] MEDS: ZINC GLUCONATE 50 MG TAB PO SCH (08:39)
[2017-07-18] MEDS: LIDOCAINE 5% 1 EA PATCH TD SCH (08:39)
[2017-07-18] MEDS: APIXABAN 2.5 MG TAB PO SCH ×2 (08:40→20:56)
[2017-07-18] MEDS: FOLIC ACID 1 MG TAB PO SCH (08:40)
[2017-07-18] MEDS ORDERED: POLYETHYLENE GLYCOL 3350 17 GM PKT PO PRN (09:38)
[2017-07-18] MEDS ORDERED: LACTULOSE 20 GM/30 ML UDCUP PO PRN (09:38)
[2017-07-18] MEDS ORDERED: BISACODYL 10 MG SUPP PR PRN (09:38)
[2017-07-18] MEDS ORDERED: MAGNESIUM HYDROXIDE 30 ML UDCUP PO PRN (09:38)
--- NOTE | 2017-07-18 09:48 | SOAPPROG ---
SOAP Progress Note Assessment/Plan: Assessment: 81 yo female w/PNA w/ ? of empyema - repeat cxr pending - attempt made earlier w / wheelchair and pt too fatigued, will return for bedside, cont on levaquin, wbc greatly improved (lymph is elev at baseline w/ CLL). -CLL- stable -some confusion - per son she is much better than yesterday, acute illness contributing, will cont re assess. -h/o dvt/pe - on eliquis, also w/ ? of PAF will protect w/ eliquis. -DNR status - son aware of goals and situation w/ current pna and possible empyema and what may need to transpire if she does not improve. Will continue to discuss w/ family as this evolves. -loida - cont on olanzapine. Plan: 07/16/17 12:21 07/18/17 09:39 81 yo female w/ PNA w/ possible empyema on levaquin IV - much better today compared to the weekend! She is working w/ PT at time in room w/ pt. Much brighter affect, feels like breathing is much better now. Still w/ some discomfort L chest but has bruising here from a fall prior to admission. Will change levaquin to po. Cont to work w/ pt/ot. Appreciate their assessments of her - she is in ass'td living currently. Will assess progress as Shonna significantly better today than over the w/e. -h/o dvt/pe/PAF on eliquis. -a fib w/ rvr and elevated BP - rate control w/ diltiazem but will increase to 60 mg q6 from 30 for additional assistance w/ this. If bp remains elev will add additional agent. Cont eliqiuis. -h/o loida - cont olanzapine, bdz per usual outpt regimen. -constipation - will add in bowel regimen of choice for pt to med list -dispo - will depend on progress w/ PT and f/u on cxr for pna vs empyema. CXR being ordered today but given her turn around this is encouraging. -elev WBC - now more appropriate and c/w her underlying CLL. 07/18/17 09:49 Subjective: Doing better, can breath better today, feels more like her usual self Objective: Vital Signs Temp Pulse Resp BP Pulse Ox 36.3 C 110 H 20 140/80 H 92 07/18/17 07:13 07/18/17 07:13 07/18/17 05:46 07/18/17 07:13 07/18/17 07:13 Laboratory Results 07/18/17 03:26 07/18/17 03:26 07/17/17 07/18/17 07/19/17 05:59 05:59 05:59 Intake Total 300 4898 Output Total 1050 1000 Balance -750 3898 PT 14.8 SEC (12.0-15.0) 07/15/17 09:30 INR 1.14 (0.83-1.16) 07/15/17 09:30 Gen: alert, brighter affect Heent: nasal cannula, eomi Chest: decreased bs L base, bruising L chest laterally Abd: soft nt nd CV: irreg irreg Ext: no edema ICD10 Worksheet Patient Problems: Problems Problem Status Onset Pneumonia Acute
[2017-07-18] MEDS: FLUTICASONE/SALMETER 250/50MCG DISKUS IH SCH ×2 (13:40→20:13)
[2017-07-18] MEDS: FLUTICASONE NASAL 120 SPRAYS/16 GM MDI EACHNARE SCH (14:00)
--- NOTE | 2017-07-18 16:54 | ASMTCMCOM ---
CM Note CM Note Notes: 07/18/2017 Case Management Note Met w/pt to discuss PT recommendations for SNF rehab. Pt in agreement and reports previous stay in [facility]. Requested referral sent. Faxed referral. Case Management d/c poc: to [facility] pending acceptance. Case Management to follow. Date Signed: 07/18/2017 04:53 PM Electronically Signed By:Otilia Johnson RN
[2017-07-18] MEDS: OLANZapine 10 MG TAB PO SCH (20:55)
[2017-07-18] MEDS: SENNOSIDES/DOCUSATE SODIUM TAB PO SCH (20:56)
[2017-07-18] MEDS: PATCH REMOVAL 1 EA PATCH TD SCH (20:57)
[2017-07-19] MEDS: POTASSIUM Cl (KCl) 20 MEQ in NS 1,000 ML IV SCH (03:43)
[2017-07-19] MEDS: DILTIAZEM 30 MG TAB PO SCH (05:27)
[2017-07-19] MEDS: IPRATROPIUM/ALBUTEROL 3 ML DEYVIAL IH SCH ×4 (05:57→20:16)
[2017-07-19] MEDS ORDERED: BISACODYL 10 MG SUPP PR ONE (08:42)
--- NOTE | 2017-07-19 08:46 | SOAPPROG ---
SOAP Progress Note Assessment/Plan: Assessment: Plan: 07/15/17 12:06 pna--she looked quite sick 2 hours ago, but has responded well to fluids and antibiotics. Culture pending. Lactic acid nl range. Poss empyema, will follow CXR and response to atbx chronic dahiana--stable will olanzapine mild STM loss--follow, expect confusion to be increase with acute illness CLL--assistant terminal manager stability. lymphocyte count down now with acute bacterial pna advanced directives--DNR h/o DVT and PE, known CLL and poss a fib. will resume anticoag in the form of Eliquis 5 mg BID Challenges of situation discussed with patient, son and grandson. 07/17/17 08:51 pneumonia--still problematic, low temp this am. BC's pending from less than 48 hours ago. BP stable but lower after IV lopressor a fib with RVR, some of this suspected from ER, rate improved with IV lopressor. PO dilt ordered, swallowing brought into question, may need dilt drip. Transfer to PCU D[place]--well controlled on olanzapine, with will need to be continued swallowing challenges--ST eval CLL--stable 07/19/17 08:44 pneumonia--check CT r/o empyema. Clinically she seems to be improving, hopefully just effusions identified a fib--currently NSR, will change dilt to daily long acting effusions, reduce fluids to KVO dahiana--she has not needed any benzo doses here and does not just benzos at home , will d/c. Continue on stable olanzapine as her dahiana control remains to be excellent CLL--stable dispo--await CT results, hopefully she will continue to improve with PT/OT Subjective: The patient is tired this am, but had a 1/2 vicodin earlier this am. She admits to a mild sense of SOB. No other complaints, just tired Objective: Vital Signs Temp Pulse Resp BP Pulse Ox 36.7 C 88 18 148/84 H 96 07/19/17 04:00 07/19/17 05:27 07/19/17 04:00 07/19/17 05:27 07/19/17 04:00 Laboratory Results 07/18/17 03:26 07/18/17 03:26 07/18/17 07/19/17 07/20/17 05:59 05:59 05:59 Intake Total 4898 2057.5 Output Total 1000 1100 Balance 3898 957.5 PT 14.8 SEC (12.0-15.0) 07/15/17 09:30 INR 1.14 (0.83-1.16) 07/15/17 09:30 Gen: sleepy Lungs: diminished BS in bases, CXR--increased effusion +/- empyema Heart: sinus 80's currently Abd + bs soft No recorded BM since admission CBC--stable, c/w underlying CLL ICD10 Worksheet Patient Problems: Problems Problem Status Onset Pneumonia Acute chronic disease mgmt/transitional care Acute
[2017-07-19] MEDS: FLUTICASONE/SALMETER 250/50MCG DISKUS IH SCH ×2 (10:03→20:16)
[2017-07-19] MEDS: LIDOCAINE 5% 1 EA PATCH TD SCH (10:33)
[2017-07-19] MEDS: SENNOSIDES/DOCUSATE SODIUM TAB PO SCH ×2 (10:34→20:43)
[2017-07-19] MEDS: FOLIC ACID 1 MG TAB PO SCH (10:34)
[2017-07-19] MEDS: ZINC GLUCONATE 50 MG TAB PO SCH (10:35)
[2017-07-19] MEDS: FLUTICASONE NASAL 120 SPRAYS/16 GM MDI EACHNARE SCH (10:35)
[2017-07-19] MEDS: APIXABAN 2.5 MG TAB PO SCH ×2 (10:35→20:43)
[2017-07-19] MEDS ORDERED: IOPAMIDOL (ISOVUE-300) 100 ML BTL ONE (10:37)
[2017-07-19] MEDS: DILTIAZEM XR 240 MG CAP PO SCH (10:43)
[2017-07-19] MEDS: SENNOSIDES 1 TAB PO SCH (13:50)
[2017-07-19] MEDS: ACETAMINOPHEN 325 MG TAB PO PRN ×2 (14:07→19:23)
[2017-07-19] MEDS: OLANZapine 10 MG TAB PO SCH (20:43)
[2017-07-19] MEDS: SPIRONOLACTONE 25 MG TAB PO SCH (20:43)
[2017-07-19] MEDS: PATCH REMOVAL 1 EA PATCH TD SCH (20:44)
[2017-07-20] MEDS: IPRATROPIUM/ALBUTEROL 3 ML DEYVIAL IH SCH ×2 (05:33→10:22)
[2017-07-20 07:23] VITALS: BP 140/77; TEMP 97.3
--- NOTE | 2017-07-20 08:44 | SOAPPROG ---
SOAP Progress Note Assessment/Plan: Assessment: Plan: 07/15/17 12:06 pna--she looked quite sick 2 hours ago, but has responded well to fluids and antibiotics. Culture pending. Lactic acid nl range. Poss empyema, will follow CXR and response to atbx chronic dahiana--stable will olanzapine mild STM loss--follow, expect confusion to be increase with acute illness CLL--intermodal owner operator truck driver stability. lymphocyte count down now with acute bacterial pna advanced directives--DNR h/o DVT and PE, known CLL and poss a fib. will resume anticoag in the form of Eliquis 5 mg BID Challenges of situation discussed with patient, son and grandson. 07/17/17 08:51 pneumonia--still problematic, low temp this am. BC's pending from less than 48 hours ago. BP stable but lower after IV lopressor a fib with RVR, some of this suspected from ER, rate improved with IV lopressor. PO dilt ordered, swallowing brought into question, may need dilt drip. Transfer to PCU [place]--well controlled on olanzapine, with will need to be continued swallowing challenges--ST eval CLL--stable 07/19/17 08:44 pneumonia--check CT r/o empyema. Clinically she seems to be improving, hopefully just effusions identified a fib--currently NSR, will change dilt to daily long acting effusions, reduce fluids to KVO dahiana--she has not needed any benzo doses here and does not just benzos at home , will d/c. Continue on stable olanzapine as her dahiana control remains to be excellent CLL--stable dispo--await CT results, hopefully she will continue to improve with PT/OT 07/20/17 08:44 pneumonia--nicely improved, last dose of levaquin today a fib--stable sinus now, continue dilt for now large effusions--likely multifactorial, IVF's stopped, spironolactone started, better output now constipation--resolved 6 left lateral rib fx's--discussed with patient low protein--encourage better po intake CLL-stable Dahiana--stable on chronic olanzapine--d/c to SNF to day if possible Subjective: Shonna is feeling better. Ribs are sore. Deep breathing seems easier currently. Appetite is low. + BM yesterday Objective: Vital Signs Temp Pulse Resp BP Pulse Ox 36.3 C 99 16 140/77 H 95 07/20/17 07:22 07/20/17 07:22 07/20/17 07:22 07/20/17 07:22 07/20/17 07:22 Laboratory Results 07/18/17 03:26 07/20/17 03:24 07/19/17 07/20/17 07/21/17 05:59 05:59 05:59 Intake Total 2057.5 1797 Output Total 1100 1600 Balance 957.5 197 PT 14.8 SEC (12.0-15.0) 07/15/17 09:30 INR 1.14 (0.83-1.16) 07/15/17 09:30 Gen: Bright Lungs: diminished BS, minimal cough Heart: sinus 90's to low 100's Abd + bs soft LE's no edema CT chest no empyema, large effusion left, mild right ribs 6--> 11 with lateral fx's Alb 2.3 ICD10 Worksheet Patient Problems: Problems Problem Status Onset Pneumonia Acute chronic disease [facility]/transitional care Acute
[2017-07-20] MEDS: LIDOCAINE 5% 1 EA PATCH TD SCH (08:56)
[2017-07-20] MEDS: SPIRONOLACTONE 25 MG TAB PO SCH (08:58)
[2017-07-20] MEDS: ZINC GLUCONATE 50 MG TAB PO SCH (08:58)
[2017-07-20] MEDS: DILTIAZEM XR 240 MG CAP PO SCH (08:58)
[2017-07-20] MEDS: APIXABAN 2.5 MG TAB PO SCH (08:59)
[2017-07-20] MEDS: SENNOSIDES/DOCUSATE SODIUM TAB PO SCH (08:59)
[2017-07-20] MEDS: FOLIC ACID 1 MG TAB PO SCH (08:59)
[2017-07-20] MEDS: ACETAMINOPHEN 325 MG TAB PO PRN (09:07)
[2017-07-20] MEDS: FLUTICASONE NASAL 120 SPRAYS/16 GM MDI EACHNARE SCH (09:08)
--- NOTE | 2017-07-20 09:13 | GDS ---
[f rep st] DISCHARGE SUMMARY REASON FOR ADMISSION: Concern over pneumonia with hypotension. DISCHARGE DIAGNOSES: 1. Pneumonia, improved with antibiotic treatment. 2. Hypotension, improved with IV fluid support. 3. Discovery of 6 left-sided lateral rib fractures with moderate pain symptoms. She is doing fairly well. 4. Large effusion, left, [id number] effusion, right, improving with stopping of intravenous fl uids and the addition of spironolactone. 5. Development of intermittent atrial fibrillation with rapid ventricular rate. She has been stabil ized on diltiazem and Eliquis has been added. HOSPITAL COURSE: Patient was initially quite ill appearing in the ER. She responded well to fluids and antibiotics with improvement of blood pressure and overall awareness. There was some concern ini tially for potential empyema. She developed a rather large effusion. Fluids were initially necessar y to support her blood pressure. These were quickly reduced. A CT to rule out empyema was performed . No empyema was found. She did have a large left-sided effusion and a mild to moderate right-sided effusion. For this reason, IV fluids have been stopped and spironolactone has been started. Urinar y output has improved nicely. She does have low albumin and she has been encouraged to hopefully inc rease her diet as she tolerates. She has completed her antibiotic course for pneumonia as of this mo rning with a single last dose of Levaquin. She will be transferred to [facility] wit h hopeful return to assisted living at [place] when she is more sturdy. /[id number]/MODL
--- NOTE | 2017-07-20 09:52 | PDIAF ---
- Diagnosis Diagnosis: pneumonia, intermittent a fib, pleural effusion, rib fx's --left Code Status: Do Not Resuscitate - Medication Management Discharge Medications: Medications to Continue on Transfer Acetaminophen [Tylenol 325mg (*)] 650 mg PO Q4H PRN MDD 4 gm 07/15/17 [Last Taken 07/14/17] Calcium Carbonate [Tums 500MG (*)] 500 mg PO DAILY 07/15/17 [Last Taken 07/15/17 ] Cyanocobalamin [Vitamin B12 (*)] 1,000 mcg PO DAILY 07/15/17 [Last Taken ] FOLIC ACID 0.4 mg PO DAILY 07/15/17 [Last Taken 07/14/17] Fluticasone Nasal [Flonase Nasal [place]] 1 sprays EACHNARE DAILY 07/15/17 [Last Taken 07/14/17] Fluticasone/Salmeter 250/50Mcg [Advair 250/50 (*)] 1 puffs IH BID 07/15/17 [ Last Taken 07/14/17] Hydrocodone/Acetaminophen [[place] 5/325 (*)] 0.5 each PO Q8H PRN 07/15/17 [Last Taken 07/13/17] Lidocaine 5% [Lidoderm 5% Patch (*)] 1 ea TD DAILY 07/15/17 [Last Taken 07/15/17 ] OLANZapine [Zyprexa] 15 mg PO HS 07/15/17 [Last Taken 07/14/17] Bovill-3 Fatty Acids [Fish Oil 1000 mg (*)] 1,000 mg PO DAILY 07/15/17 [Last Taken 07/14/17] Patch Removal 1 ea TD DAILY@199907/15/17 [Last Taken Unknown] Sennosides [Senna Lax] 8.6 mg PO DAILY 07/15/17 [Last Taken 07/14/17] Zinc Gluconate [Zinc Chelated 50mg (*)] 50 mg PO DAILY 07/15/17 [Last Taken 11/24] Acetaminophen [Tylenol 325mg (*)] 650 mg PO Q4HRS PRN tab 07/20/17 [Last Taken Unknown] Apixaban [Eliquis] 2.5 mg PO BID tab 07/20/17 [Last Taken Unknown] Diltiazem Xr [Dilacor Xr] 240 mg PO DAILY cap 07/20/17 [Last Taken Unknown] Ondansetron Odt [Zofran Odt 4 mg (*)] 4 mg PO Q4HRS PRN tab 07/20/17 [Last Taken Unknown] Polyethylene Glycol 3350 [Miralax 17 gm (*)] 17 gm PO DAILY PRN pkt 07/20/17 [ Last Taken Unknown] Sennosides/Docusate Sodium [Senokot-S] 1 - 2 tab PO BID tab 07/20/17 [Last Taken Unknown] Spironolactone [Aldactone 25 MG (*)] 25 mg PO DAILY tab 07/20/17 [Last Taken Unknown] Alf Antibiotics: n/a Discharge Medications: Refer to the Discharge Home Medication list for PRN reason. PICC Care - Routine: N/A - Orders Services needed: Physical Therapy, Occupational Therapy, Speech Language Pathologist Isolation Type: None Oxygen: 0-2 lpm based on saturations of 90% or greater Diet Recommendation: no restrictions on diet Diet Texture: Regular Texture Diet, Dysphagia 3 - Advanced - Moist, Bite-Size, Thin Liquids, Meds Whole w/Liquids Weigh Patient: weekly Reed: Yes Activity/Weight Bearing Restrictions: full as tolerated - Labs/Radiology CBC w/diff Date: 07/27/17 (fax to [phone]) CMP Date: 07/20/17 (fax to [phone]) - Follow Up Care
[2017-07-20] MEDS: FLUTICASONE/SALMETER 250/50MCG DISKUS IH SCH (10:22)
[2017-07-20 10:32] VITALS: PULSE 94; RESP 18; O2SAT 94
--- NOTE | 2017-07-20 14:35 | ASDISCHSUM ---
Discharge Information Plan Status:SNF Medically Cleared to Leave:07/19/2017 Discharge Date:07/20/2017 12:14 PM CM D/C Disposition: ADT D/C Disposition:Halfway Facility Projected Discharge Date:07/20/2017 11:00 AM Transportation at D/C: Discharge Delay Reason: Follow-Up Date:07/20/2017 11:00 AM Discharge Slot: Final Diagnosis: Placement Information Referral Type:*Prison/SNF Referral ID:[id number] Provider Name:[facility] Address 1:[address] Address 2: City:[place] Selection Factors: State:[place] Patient Contact Information Contact Name:MARY Relationship:Son Address:[address] Home Phone: City:[place] Alternate Phone: State/Zip Code:[place] [address] Email: Financial Information Financial Class: Primary Plan Desc:MEDICARE INPATIENT Primary Plan Number:[id number] Secondary Plan Desc: Secondary Plan Number: Assessment Information [facility] CM Progress Note CM Note CM Note Notes: Pt admitted w/PNA, possible empyema. She lives at [facility], has local son and grandson. DC needs not clear yet, awaiting therapy recommendations. Date Signed: 07/16/2017 11:24 AM Electronically Signed By:Cielo Huff RN [facility] CM Progress Note CM Note CM Note Notes: 07/18/2017 Case Management Note Met w/pt to discuss PT recommendations for SNF rehab. Pt in agreement and reports previous stay in [facility]. Requested referral sent. Faxed referral. Case Management d/c poc: to [facility] pending acceptance. Case Management to follow. Date Signed: 07/18/2017 04:53 PM Electronically Signed By:Otilia Johnson RN Case Management Discharge Plan Note Case Management Discharge Discharge Order Complete? Answers: Yes Patient to Obtain Answers: Other Notes: [facility] Medications Transportation Arranged Answers: Other Notes: [facility] Transport will Pick (Date 07/20/2017 12:00 PM & Time) EMTALA Complete Answers: No Case Management Transport Answers: No Form Complete Faxed Final Orders Answers: Yes Agency/Facility Transfer Answers: Yes Report Printed & Faxed to Receiving Agency Family Notified Answers: No Discharge Comments Notes: CM spoke w/ Pérez Zepeda regarding d/c POC. Pt is being discharged today at noon to [facility]. CM sent d/c orders to [facility]. CM provided phone number to give report to MEENA Cespedes. CM available for changes. Plan: [facility] Date Signed: 07/20/2017 10:24 AM Electronically Signed By:JERONIMO Parker Intervention Information Intervention Type:*IM-Signed Date of Service:07/20/2017 09:50 AM Patient Type:Inpatient Staff Member:Alyce Carrillo Hours: Discipline: Severity: Comment:
== END 2017-07-20 12:14 | DRG 194 ==
LOC: EDUNIT# → F3E 11:57 → F2W 07-17 09:57
PROVIDERS: ADMIT Internal Medicine; ATTEND Internal Medicine
DX: J18.0 Bronchopneumonia, unspecified organism (principal); E86.1 Hypovolemia; J91.8 Pleural effusion in other conditions classified elsewhere; E87.6 Hypokalemia; E87.79 Other fluid overload; I48.0 Paroxysmal atrial fibrillation; S22.42XA Multiple fractures of ribs, left side, initial encounter for closed fracture; W01.198A Fall on same level from slipping, tripping and stumbling with subsequent striking against other object, initial encounter; Y92.098 Other place in other non-institutional residence as the place of occurrence of the external cause; Y99.8 Other external cause status; J44.9 Chronic obstructive pulmonary disease, unspecified; M81.0 Age-related osteoporosis without current pathological fracture; Z87.310 Personal history of (healed) osteoporosis fracture; R63.6 Underweight; F41.9 Anxiety disorder, unspecified; C91.10 Chronic lymphocytic leukemia of B-cell type not having achieved remission; F30.10 Manic episode without psychotic symptoms, unspecified; Z86.718 Personal history of other venous thrombosis and embolism; Z86.711 Personal history of pulmonary embolism; Z79.01 Long term (current) use of anticoagulants
CPT/HCPCS: 92526-GN; 92610-GN; 96365; 97116-GP; 97162-GP; 97166-GO; 97530-GO; 97530-GP; 97535-GO; G8978-GP-CL; G8979-GP-CJ; G8980-GP-CK; G8987-GO-CL; G8988-GO-CJ; G8996-GN-CI; G8997-GN-CH; G8998-GN-CH; J1956; Q9967

== ENCOUNTER 2017-11-11 21:02 | Emergency (ER) | payer OTHER ==
--- NOTE | 2017-11-11 21:38 | CPEKG ---
Heart Rate: 87 RR Interval: 690 P-R Interval: 172 QRSD Interval: 102 QT Interval: 364 QTC Interval: 438 P Otto: 80 QRS Otto: -61 T Wave Otto: 79 EKG Severity - ABNORMAL ECG - EKG Impression: SINUS RHYTHM EKG Impression: LEFT ANTERIOR FASCICULAR BLOCK EKG Impression: LEFT VENTRICULAR HYPERTROPHY EKG Impression: ANTERIOR Q WAVES, POSSIBLY DUE TO LVH Electronically Signed By: Sia Matos 11-Nov-2017 22:36:04
[2017-11-11] MEDS ORDERED: ACETAMINOPHEN 325 MG TAB PO ONE (21:41)
[2017-11-11 21:45] VITALS: BP 140/87
--- NOTE | 2017-11-11 21:47 | EDPHY ---
H & P Time Seen by Provider: 11/11/17 21:28 HPI/ROS: CHIEF COMPLAINT: Chest discomfort HISTORY OF PRESENT ILLNESS: The patient is an 82-year-old female who presents emergency department chest discomfort. The patient states that last Monday she choked on potatoes. At this cyst living someone perform the Heimlich maneuver. This dislodged potato and she was able to breathe. However, since having the Heimlich maneuver performed she has had chest discomfort. It is worse with movement. It is worse with deep breath. Patient states"my ribs hurt."Patient denies abdominal pain. No nausea or vomiting. No fevers or chills. No cough. No dysuria frequency. Tonight when she laid down she stated her symptoms felt worse. Of note, the triage note states the patient has abdominal pain. However, the patient denies any abdominal pain. She states it is all in her chest as described above. REVIEW OF SYSTEMS: My complete review of systems is negative except as mentioned in the HPI. Past Medical/Surgical History: Includes COPD, leukemia, anemia, loida, pneumonia atrial fibrillation Past surgical history: Includes appendectomy Smoking Status: Never smoked Physical Exam: 37.1, 122/77, 93, 16, 93% on room air GENERAL: No acute distress, alert. HEENT: Eyes normal to inspection, normal pharynx, no signs of dehydration. NECK: No thyromegaly, no lymphadenopathy, supple. RESPIRATORY: Clear to auscultation bilaterally, no rales, rhonchi or wheezing. CVS: Regular rate and rhythm, no rubs, murmurs, or gallops. Chest wall: No deformity. No crepitus. Patient has chest wall tenderness palpation. This is primarily with pressure over the sternum. This replicates her pain. ABDOMEN: Soft, nontender, nondistended, no organomegaly. BACK: Normal to inspection, no CVA tenderness. SKIN: Normal color, no rash, warm, dry. No pallor. EXTREMITIES: No pedal edema, no calf tenderness, no Homans sign or cords, no joint swelling. NEURO/PSYCH: Alert and oriented x3, normal mood and affect, normal motor sensory exam. No obvious cranial nerve deficit. Constitutional: Initial Vital Signs Temperature (C) 37.1 C 11/11/17 21:06 Heart Rate 93 05/05/18 21:06 Respiratory Rate 16 11/11/17 21:06 Blood Pressure 122/77 H 11/11/17 21:06 O2 Sat (%) 93 11/11/17 21:06 O2 Delivery Mode Room Air Allergies/Adverse Reactions: Penicillins Allergy (Verified 11/11/17 21:11) Home Medications: Medication Instructions Recorded Calcium Carbonate [Tums 500MG (*)] 500 mg PO DAILY 07/15/17 Cyanocobalamin [Vitamin B12 (*)] 1,000 mcg PO DAILY 07/15/17 FOLIC ACID 0.4 mg PO DAILY 07/15/17 Fluticasone Nasal [Flonase Nasal 1 sprays EACHNARE DAILY 07/15/17 [place]] Fluticasone/Salmeter 250/50Mcg 1 puffs IH BID 07/15/17 [Advair 250/50 (*)] Lidocaine 5% [Lidoderm 5% Patch] 1 ea TD DAILY 07/15/17 OLANZapine [Zyprexa] 15 mg PO HS 07/15/17 [place]-3 Fatty Acids [Fish Oil 1000 1,000 mg PO DAILY 07/15/17 mg (*)] Patch Removal 1 ea TD DAILY@199907/15/17 Sennosides [Senna Lax] 8.6 mg PO DAILY 07/15/17 Zinc Gluconate [Zinc Chelated 50mg 50 mg PO DAILY 07/15/17 (*)] Acetaminophen [Tylenol 325mg (*)] 650 mg PO Q4HRS PRN tab 07/20/17 Apixaban [Eliquis] 2.5 mg PO BID tab 07/20/17 Diltiazem Xr [Dilacor Xr] 240 mg PO DAILY cap 07/20/17 Polyethylene Glycol 3350 [Miralax 17 gm PO DAILY PRN pkt 07/20/17 17 gm (*)] Sennosides/Docusate Sodium 1 - 2 tab PO BID tab 07/20/17 [Senokot-S] Spironolactone [Aldactone 25 MG 25 mg PO DAILY tab 07/20/17 (*)] Medical Decision Making - Diagnostics Imaging Results: Imaging Impressions Chest X-Ray 11/11/17 21:41 Impression: 1. Clear lungs. No acute process or displaced acute rib fracture. 2. Completely resolved left pleural effusion and left basilar consolidation. 3. Healing left rib fractures. 4. Worsening moderate to severe low thoracic compression fracture since July 2017. Findings discussed with Emergency Department physician, HEDY SAM at 22:12. ED Course/Re-evaluation: In the emergency department I discussed possible etiologies with the patient and her son. I answered all her questions. EKG and chest x-ray were ordered. Patient was given Tylenol 650 mg orally. EKG: Sinus rhythm at 87. Left anterior fascicular block. Left ventricular hypertrophy. I compared this with an old EKG. She previously had a left anterior fascicular block. She was also previously noted to be in atrial fibrillation. chest x-ray: Please refer the dictated report. Differential Diagnosis: My differential includes but is not limited to rib fracture, rib contusion, costochondritis, pneumonia, bronchitis, hiatal hernia, ACS, acute RI - Data Points Medications Given: Discontinued Medications Acetaminophen (Tylenol) 650 mg PO EDNOW ONE Stop: 11/11/17 21:42 Last Admin: 11/11/17 21:44 Dose: 650 mg Departure - Departure Disposition: Home, Routine, Self-Care Clinical Impression: Chest wall pain Condition: Good Instructions: Chest Wall Pain (ED) Referrals: Pérez Cortes PA [Primary Care Provider] - 2-3 days, if not improved
== END 2017-11-11 23:11 | disposition home or self-care (01) ==
DX: R07.89 Other chest pain (principal); J44.9 Chronic obstructive pulmonary disease, unspecified

== ENCOUNTER 2018-04-28 17:49 | Inpatient (IN) | payer OTHER ==
[2018-04-28] MEDS ORDERED: IPRATROPIUM/ALBUTEROL 3 ML DEYVIAL ONE (17:58)
[2018-04-28] MEDS ORDERED: methylPREDNISolone SOD SUCC 125 MG/2 ML VIAL ONE (18:08)
[2018-04-28] MEDS ORDERED: BENZOCAINE UNIT DOSE SPRAY HURRICAINE MM ONE (18:18)
[2018-04-28] MEDS ORDERED: methylPREDNISolone SOD SUCC 125 MG/2 ML VIAL IVP ONE (18:22)
[2018-04-28] MEDS ORDERED: IPRATROPIUM/ALBUTEROL 3 ML DEYVIAL IH ONE (18:22)
[2018-04-28] MEDS ORDERED: ONDANSETRON 4 MG/2 ML VIAL ONE (18:26)
[2018-04-28] MEDS ORDERED: ONDANSETRON 4 MG/2 ML VIAL IVP ONE (18:29)
[2018-04-28] MEDS ORDERED: ONDANSETRON DISINTEGRATING 4 MG TAB PO ONE (18:29)
[2018-04-28 18:37] LABS: PLATELET COUNT 177 10^3/uL (150-400)
[2018-04-28] MEDS ORDERED: ALBUTEROL 3 ML DEYVIAL ONE (18:37)
[2018-04-28] MEDS ORDERED: ALBUTEROL 3 ML DEYVIAL IH ONE (18:44)
--- NOTE | 2018-04-28 18:49 | EDPHY ---
H & P Time Seen by Provider: 04/28/18 18:00 HPI/ROS: CHIEF COMPLAINT: Respiratory distress HISTORY OF PRESENT ILLNESS: The patient is an 82-year-old female with a history of COPD who presents emergency department via EMS with reported aspiration. The patient was at her memory care facility when she was noted to choke. The Heimlich maneuver was performed. No food was seen with the Heimlich maneuver. Per EMS, the patient has had oxygen saturations in the 80. She has significant respiratory distress. The patient denies chest pain. She feels as though it is hard to take a deep breath "in my lungs". She also feels as though she has a foreign body on the right lateral aspect of her neck. She she points to the angle of her jaw and neck. Patient states she has had a previous foreign body. REVIEW OF SYSTEMS: 10 systems were reveiwed and are negative with the exception of the elements mentioned in the history of present illness. Past Medical/Surgical History: Includes COPD Social history: Patient does not smoke. She lives in a memory care unit. Smoking Status: Never smoked Physical Exam: Vitals noted GENERAL: Moderate acute distress, alert. HEENT: Eyes normal to inspection, normal pharynx, no signs of dehydration. The patient is tolerating her secretions. Uvula is midline. NECK: Normal, supple. No stridor RESPIRATORY: [The patient has slight rales on the left side. No rhonchi. There is no noted wheezing. The patient does have accessory muscle use with retractions. CVS: Regular rate and rhythm, no rubs, murmurs, or gallops. ABDOMEN: Soft, nontender, nondistended, no organomegaly. BACK: Normal to inspection. SKIN: Normal color, no rash, warm, dry. No pallor. EXTREMITIES: No pedal edema, no calf tenderness, no Homans sign or cords, no joint swelling. NEURO/PSYCH: Alert and oriented, normal mood and affect, normal motor sensory exam. Constitutional: Initial Vital Signs Temperature (C) 37 C 04/28/18 18:02 Heart Rate 113 H 04/28/18 18:02 Respiratory Rate 30 H 04/28/18 18:02 Blood Pressure 161/83 H 04/28/18 18:02 O2 Sat (%) 88 L 04/28/18 18: O2 Delivery Mode Oxymizer,Non-Rebreather Mask O2 (L/minute) 15 Allergies/Adverse Reactions: Penicillins Allergy (Verified 04/28/18 18:02) Home Medications: Medication Instructions Recorded Calcium Carbonate [Tums 500MG (*)] 500 mg PO DAILY 07/15/17 Cyanocobalamin [Vitamin B12 (*)] 1,000 mcg PO DAILY 07/15/17 FOLIC ACID 0.4 mg PO DAILY 07/15/17 Fluticasone Nasal [Flonase Nasal 1 sprays EACHNARE DAILY 07/15/17 [place]] Fluticasone/Salmeter 250/50Mcg 1 puffs IH BID 07/15/17 [Advair 250/50 (*)] Lidocaine 5% [Lidoderm 5% Patch] 1 ea TD DAILY 07/15/17 OLANZapine [Zyprexa] 15 mg PO HS 07/15/17 [place]-3 Fatty Acids [Fish Oil 1000 1,000 mg PO DAILY 07/15/17 mg (*)] Patch Removal 1 ea TD DAILY@199907/15/17 Sennosides [Senna Lax] 8.6 mg PO DAILY 07/15/17 Zinc Gluconate [Zinc Chelated 50mg 50 mg PO DAILY 07/15/17 (*)] Acetaminophen [Tylenol 325mg (*)] 650 mg PO Q4HRS PRN tab 07/20/17 Apixaban [Eliquis] 2.5 mg PO BID tab 07/20/17 Diltiazem Xr [Dilacor Xr] 240 mg PO DAILY cap 07/20/17 Polyethylene Glycol 3350 [Miralax 17 gm PO DAILY PRN pkt 07/20/17 17 gm (*)] Sennosides/Docusate Sodium 1 - 2 tab PO BID tab 07/20/17 [Senokot-S] Spironolactone [Aldactone 25 MG 25 mg PO DAILY tab 07/20/17 (*)] Medical Decision Making - Diagnostics EKG Interpretation: Atrial fib/flutter at 131. Incomplete right bundle branch block. Mild ST depression. Imaging Results: Imaging Impressions Chest X-Ray 04/28/18 17:52 Impression: Limited rotated chest, with probable airways disease/bronchitis, with basilar consolidation, which could be related to atelectasis and effusions , or less likely pneumonia. Soft Tissue Neck X-Ray 04/28/18 17:53 Impression: 1. No radiopaque foreign object identified. 2. Mild interstitial prominence that could be related to airways disease/ bronchitis. Chest CT 04/28/18 18:23 Impression: 1. Small right pneumothorax. 2. Extensive mucous plugging, most prominent in the right middle and lower lobes, with complete right middle lobe atelectasis and extensive right lower lobe consolidation that may represent a combination of atelectasis and/or pneumonia, with a trace right pleural effusion. 3. New mildly displaced anterior left 5th and 6th rib fractures, age indeterminate. 4. Slight increase in progression of a severe compression fracture at T11, with minimal retropulsion. 5. Indeterminate hypodensity in the spleen, stable since July. 6. Additional findings, as above. Findings discussed with Sai Matos M.D., on April 28, [address] 04/28/18 18:23 Impression: 1. Small right pneumothorax. 2. Extensive mucous plugging, most prominent in the right middle and lower lobes, with complete right middle lobe atelectasis and extensive right lower lobe consolidation that may represent a combination of atelectasis and/or pneumonia, with a trace right pleural effusion. 3. New mildly displaced anterior left 5th and 6th rib fractures, age indeterminate. 4. Slight increase in progression of a severe compression fracture at T11, with minimal retropulsion. 5. Indeterminate hypodensity in the spleen, stable since July. 6. Additional findings, as above. Findings discussed with Sia Matos M.D., on April 28, 2018 at 1921. Procedures: Bedside fiberoptic laryngoscopy. Indication: Respiratory distress, possible foreign body Patient consented to the procedure verbally. She was given lidocaine spray. Upon placing the scope the patient coughed and spit up a chunk of food. Patient stated this improved her foreign body sensation in throat. I was able to visualize the patient's vocal cords. There is no obstruction. ED Course/Re-evaluation: I met EMS on arrival. I took report from the e commerce strategist. The patient was noted to be in significant respiratory distress. She does have a history of [employer] D. On my initial exam she had no stridor or signs of upper airway obstruction. She did report a foreign body sensation. Patient was noted to have rales on the left side. Patient was placed on a high-flow nasal cannula and a non-rebreather high-flow. Due the patient's distress she was given a DuoNeb. Chest x-ray: No visible foreign body. No pneumothorax. Scoliosis. No visible foreign body in the neck. The DuoNeb did not rapidly improve her symptoms. However, because of her COPD history she was given Solu-Medrol 125 mg IV. I discussed the case with the patient's son who was present I was concerned the patient's ongoing Respiratory distressing was concern for aspiration pneumonia. She is given Levaquin 750 mg IV. I discussed the case with Dr. Flower CARETR. He felt this would be more appropriate for pulmonology. I discussed this with Dr. Villagomez from pulmonology. He reviewed the plan for fiberoptic scope evaluation in the ED and requested CT imaging. I discussed CT imaging with Dr. Aceves. He recommended non-contrast CT imaging. I re-evaluated the patient. She consented to have oxygen saturations in the high 80s. The patient was placed on Vapotherm and a non-rebreather Patient's oxygen saturation improved to at 88-89%. Patient's chemistry panel was notable for slightly elevated potassium 5.0. Patient's anion gap was elevated at 15. Patient's creatinine was 1.0. Patient' s white count was elevated at 39. I was concerned with sepsis. I was also concerned with the patient's wraps poor status and possible fluid overload. Because of this she was given normal saline 500 mL IV rather than a full bolus. Bedside fiberoptic scope evaluation was performed. Lidocaine spray was placed. When I initially placed the scope in the patient's throat she gagged and coughed. This brought up a small chunk of food into her posterior pharynx. I was able to grab this with my fingers and pulled out. The patient stated this made the foreign body sensation in her throat resolved. However she continued to have respiratory distress with significant work of breathing. I proceeded with the scope. I was able to visualize her posterior pharynx and vocal cords. There is no obstruction blacking flow to her vocal cords. The patient was placed on a non rebreather and high-flow nasal cannula in order to obtain CT imaging. Upon returning from CT imaging the patient was feeling better. She felt her respiratory status had slightly improved. CT: Please refer the dictated report by Dr. Aceves. There is no visible foreign body in the throat of pharynx. The patient did have significant aspiration on the right side. This started at the bronchus intermedius. The patient also has a small right upper lobe pneumothorax. I discussed the results with both Dr. Villagomez and Dr. Trinh I discussed the results with the patient and her son. Rechecked the patient on numerous occasions. Respiratory status did improve after her interventions in the emergency department. Patient's lactic acid was 2.9. Differential Diagnosis: My differential includes but is not limited to tracheal foreign body, esophageal foreign body, pneumonitis, pulmonary foreign body, pneumonia, COPD exacerbation, bronchitis, bronchiectasis, bacteremia, sepsis Critical Care Time: The patient required 50 min of critical care time. This was exclusive of any unbundled procedure. This was due the patient's respiratory distress, low oxygen saturation, time spent at the bedside, consultation with pulmonology, ENT and Internal Medicine. - Data Points Laboratory Results: Laboratory Results 04/28/18 18:30 04/28/18 18:30 04/28/18 04/28/18 04/28/18 19:24 19:02 18:30 WBC RBC Hgb Hct MCV MCH MCHC RDW Plt Count MPV Neut % (Auto) Lymph % (Auto) [place] % (Auto) Eos % (Auto) Baso % (Auto) Nucleat RBC Rel Count Absolute Neuts (auto) Absolute Lymphs (auto) Absolute Monos (auto) Absolute Eos (auto) Absolute Basos (auto) Absolute Nucleated RBC Immature Gran % Immature Gran # RBC/WBC/PLT Morphology Atypical Lymphocytes Platelet Estimate Smear Review By PT 13.8 SEC SEC (12.0-15.0) INR 1.04 (0.83-1.16) APTT 26.8 SEC SEC (23.0-38.0) VBG Lactic Acid 2.0 mmol/L mmol/L 2.9 mmol/L H mmol/L (0.7-2.1) (0.7-2.1) Sodium Potassium Chloride Carbon Dioxide Anion Gap BUN Creatinine Estimated GFR Glucose Calcium POC Troponin I Troponin I 04/28/18 04/28/18 04/28/18 18:30 18:30 18:29 WBC 39.63 10^3/uL H 10^3/uL (3.80-9.50) RBC 4.55 10^6/uL 10^6/uL (4.18-5.33) Hgb 12.6 g/dL g/dL (12.6-16.3) Hct 39.8 % % (38.0-47.0) MCV 87.5 fL fL (81.5-99.8) MCH 27.7 pg L pg (27.9-34.1) MCHC 31.7 g/dL L g/dL (32.4-36.7) RDW 14.7 % % (11.5-15.2) Plt Count 177 10^3/uL 10^3/uL (150-400) MPV 10.6 fL fL (8.7-11.7) Neut % (Auto) 21.7 % L % (39.3-74.2) Lymph % (Auto) 72.9 % H % (15.0-45.0) [place] % (Auto) 3.5 % L % (4.5-13.0) Eos % (Auto) 1.0 % % (0.6-7.6) Baso % (Auto) 0.3 % % (0.3-1.7) Nucleat RBC Rel Count 0.0 % % (0.0-0.2) Absolute Neuts (auto) 8.63 10^3/uL H 10^3/uL (1.70-6.50) Absolute Lymphs (auto) 28.88 10^3/uL H 10^3/uL (1.00-3.00) Absolute Monos (auto) 1.37 10^3/uL H 10^3/uL (0.30-0.80) Absolute Eos (auto) 0.40 10^3/uL 10^3/uL (0.03-0.40) Absolute Basos (auto) 0.10 10^3/uL 10^3/uL (0.02-0.10) Absolute Nucleated RBC 0.00 10^3/uL 10^3/uL (0-0.01) Immature Gran % 0.6 % % (0.0-1.1) Immature Gran # 0.25 10^3/uL H 10^3/uL (0.00-0.10) RBC/WBC/PLT Morphology NORMAL (NORMAL) Atypical Lymphocytes 1+ H Platelet Estimate ADEQUATE (ADEQ) Smear Review By Pending PT INR APTT VBG Lactic Acid Sodium 138 mEq/L mEq/L (135-145) Potassium 5.0 mEq/L mEq/L (3.3-5.0) Chloride 103 mEq/L mEq/L (97-110) Carbon Dioxide 20 mEq/l L mEq/l (22-31) Anion Gap 15 mEq/L H mEq/L (6-14) BUN 35 mg/dL H mg/dL (7-23) Creatinine 1.0 mg/dL mg/dL (0.6-1.0) Estimated GFR 53 Glucose 181 mg/dL H mg/dL (70-100) Calcium 9.8 mg/dL mg/dL (8.5-10.4) POC Troponin I 0.00 ng/mL ng/mL (0.00-0.08) Troponin I < 0.012 ng/mL ng/mL (0.000-0.034) Medications Given: Discontinued Medications Albuterol (Proventil Neb) 3 ml IH EDNOW ONE Stop: 04/28/18 18:45 Last Admin: 04/28/18 18:45 Dose: 3 ml Albuterol/Ipratropium (Duoneb) 3 ml IH EDNOW ONE Stop: 04/28/18 18:23 Last Admin: 04/28/18 18:00 Dose: 3 ml Levofloxacin/Dextrose (Levaquin 750 Mg (Premix)) 150 mls @ 100 mls/hr IV EDNOW ONE PRN Reason: Protocol Stop: 04/28/18 19:51 Last Admin: 04/28/18 19:05 Dose: 150 mls Sodium Chloride (Ns) 500 mls @ 0 mls/hr IV ONCE ONE PRN Reason: Wide Open Stop: 04/28/18 19:52 Last Admin: 04/28/18 19:00 Dose: 500 mls Methylprednisolone Sodium Succinate (Solu-Medrol) 125 mg IVP EDNOW ONE Stop: 04/28/18 18:23 Last Admin: 04/28/18 18:05 Dose: 125 mg Ondansetron HCl (Zofran Odt) 4 mg PO EDNOW ONE Stop: 04/28/18 18:30 Last Admin: 04/28/18 18:45 Dose: Not Given Ondansetron HCl (Zofran) 4 mg IVP EDNOW ONE Stop: 04/28/18 18:30 Last Admin: 04/28/18 18:31 Dose: 4 mg Point of Care Test Results: Chemistry 04/28/18 18:29 POC Troponin I 0.00 ng/mL ng/mL (0.00-0.08) Departure - Departure Disposition: [facility] Acute Clinical Impression: Respiratory distress, Severe sepsis Leukocytosis Qualifiers: Leukocytosis type: unspecified Qualified Code(s): D72.829 - Elevated white blood cell count, unspecified Aspiration pneumonia Qualifiers: Aspiration pneumonia type: unspecified Laterality: right Lung location: unspecified part of lung Qualified Code(s): J69.0 - Pneumonitis due to inhalation of food and vomit Condition: Fair
[2018-04-28] MEDS ORDERED: NS 500 ML IV SCH (19:00)
[2018-04-28 19:04] LABS: INR 1.04 (0.83-1.16); PROTIME(PATIENT) 13.8 SEC (12.0-15.0)
[2018-04-28] MEDS ORDERED: NS 500 ML IV ONE (19:51)
[2018-04-28] MEDS ORDERED: ACETAMINOPHEN 650 MG SUPP PR PRN (19:53)
[2018-04-28] MEDS ORDERED: PROMETHAZINE HCL 25 MG/ML INJ IVP PRN (19:53)
[2018-04-28] MEDS ORDERED: HYDROmorphONE/DILAUDID 1 MG/ML INJ IVP PRN (19:53)
[2018-04-28] MEDS ORDERED: ONDANSETRON 4 MG/2 ML VIAL IVP PRN (19:53)
[2018-04-28] MEDS ORDERED: ALBUTEROL 3 ML DEYVIAL IH PRN (19:53)
[2018-04-28] MEDS: NS 1,000 ML IV SCH (20:25)
--- NOTE | 2018-04-28 20:25 | PDGENHP ---
History and Physical - Chief Complaint choking - History of Present Illness 82 yo F with PMH of dementia and with some psychiatric history classified in prior notes as "chronic loida" presenting from [place] after being found choking on food. She was treated with the heimlich maneuver at the facility but it was noted that even after that she was having issues breathing and was therefore brought to the hospital for further evaluation. Her son present at bedside notes that she had an issue with choking once before about 3 months ago but after getting the food dislodged that time she did not have any issues. In the ER a fiberoptic scope was passed which led to the dislodgement of a chunk of food however her sxs persisted again after that. Pulmonary was consulted who recommended a chest CT revealing a small apical right pneumothorax as well as significant mucus plugging and RLL consolidation. At the time of evaluation patient is awake and alert and has no real complaints other than a sore throat. Son present at bedside notes she is DNR and he is MDPOA. History Information - Allergies/Home Medication List Allergies/Adverse Reactions: Penicillins Allergy (Verified 04/28/18 18:02) Home Medications: Calcium Carbonate [Tums 500MG (*)] 500 mg PO DAILY 07/15/17 [Last Taken 07/15/17 ] Cyanocobalamin [Vitamin B12 (*)] 1,000 mcg PO DAILY 07/15/17 [Last Taken ] FOLIC ACID 0.4 mg PO DAILY 07/15/17 [Last Taken 07/14/17] Fluticasone Nasal [Flonase Nasal [place]] 1 sprays EACHNARE DAILY 07/15/17 [Last Taken 07/14/17] Fluticasone/Salmeter 250/50Mcg [Advair 250/50 (*)] 1 puffs IH BID 07/15/17 [ Last Taken 07/14/17] Lidocaine 5% [Lidoderm 5% Patch] 1 ea TD DAILY 07/15/17 [Last Taken 07/15/17] OLANZapine [Zyprexa] 15 mg PO HS 07/15/17 [Last Taken 07/14/17] [place]-3 Fatty Acids [Fish Oil 1000 mg (*)] 1,000 mg PO DAILY 07/15/17 [Last Taken 07/14/17] Patch Removal 1 ea TD DAILY@199907/15/17 [Last Taken Unknown] Sennosides [Senna Lax] 8.6 mg PO DAILY 07/15/17 [Last Taken 07/14/17] Zinc Gluconate [Zinc Chelated 50mg (*)] 50 mg PO DAILY 07/15/17 [Last Taken 11/24] I have personally reviewed and updated: family history, medical history, social history, surgical history - Past Medical History atrial fibrillation, cancer (CLL), dementia, DVT, hypertension, pulmonary embolism, psychiatric history (chronic loida) - Surgical History Reports: no pertinent surgical hx - Family History Positive for: non-pertinent - Social History Smoking Status: Never smoked Alcohol Use: None Drug Use: None Additional social history: lives at [facility] Review of Systems Review of Systems: ROS: 10pt was reviewed & negative except for what was stated in HPI & below Physical Exam Physical Exam: Temp Pulse Resp BP Pulse Ox 37 C 103 H 16 122/64 H 90 L 04/28/18 18:02 04/28/18 19:52 04/28/18 19:52 04/28/18 19:52 04/28/18 19:52 Constitutional: no apparent distress, appears nourished Eyes: PERRL, anicteric sclera Ears, Nose, Mouth, Throat: moist mucous membranes, hearing normal Cardiovascular: regular rate and rhythym, no murmur, rub, or gallop, No edema Respiratory: expiratory wheeze, inspiratory crackles, respiratory distress Gastrointestinal: normoactive bowel sounds, soft, non-tender abdomen Genitourinary: no bladder tenderness Skin: warm, normal color Musculoskeletal: full muscle strength Neurologic: AAOx3 Psychiatric: interacting appropriately, not anxious, not encephalopathic Lab Data & Imaging Review 04/28/18 18:30 04/28/18 18:30 WBC 39.63 10^3/uL (3.80-9.50) H 04/28/18 18:30 RBC 4.55 10^6/uL (4.18-5.33) 04/28/18 18:30 Hgb 12.6 g/dL (12.6-16.3) 04/28/18 18:30 Hct 39.8 % (38.0-47.0) 04/28/18 18:30 MCV 87.5 fL (81.5-99.8) 04/28/18 18:30 MCH 27.7 pg (27.9-34.1) L 04/28/18 18:30 MCHC 31.7 g/dL (32.4-36.7) L 04/28/18 18:30 RDW 14.7 % (11.5-15.2) 04/28/18 18:30 Plt Count 177 10^3/uL (150-400) 04/28/18 18:30 MPV 10.6 fL (8.7-11.7) 04/28/18 18:30 Neut % (Auto) 21.7 % (39.3-74.2) L 04/28/18 18:30 Lymph % (Auto) 72.9 % (15.0-45.0) H 04/28/18 18:30 [place] % (Auto) 3.5 % (4.5-13.0) L 04/28/18 18:30 Eos % (Auto) 1.0 % (0.6-7.6) 04/28/18 18:30 Baso % (Auto) 0.3 % (0.3-1.7) 04/28/18 18:30 Nucleat RBC Rel Count 0.0 % (0.0-0.2) 04/28/18 18:30 Absolute Neuts (auto) 8.63 10^3/uL (1.70-6.50) H 04/28/18 18:30 Absolute Lymphs (auto) 28.88 10^3/uL (1.00-3.00) H 04/28/18 18:30 Absolute Monos (auto) 1.37 10^3/uL (0.30-0.80) H 04/28/18 18:30 Absolute Eos (auto) 0.40 10^3/uL (0.03-0.40) 04/28/18 18:30 Absolute Basos (auto) 0.10 10^3/uL (0.02-0.10) 04/28/18 18:30 Absolute Nucleated RBC 0.00 10^3/uL (0-0.01) 04/28/18 18:30 Immature Gran % 0.6 % (0.0-1.1) 04/28/18 18:30 Immature Gran # 0.25 10^3/uL (0.00-0.10) H 04/28/18 18:30 RBC/WBC/PLT Morphology NORMAL (NORMAL) 04/28/18 18:30 Atypical Lymphocytes 1+ H 04/28/18 18:30 Platelet Estimate ADEQUATE (ADEQ) 04/28/18 18:30 PT 13.8 SEC (12.0-15.0) 04/28/18 18:30 INR 1.04 (0.83-1.16) 04/28/18 18:30 APTT 26.8 SEC (23.0-38.0) 04/28/18 18:30 VBG Lactic Acid 2.0 mmol/L (0.7-2.1) 04/28/18 19:24 Sodium 138 mEq/L (135-145) 04/28/18 18:30 Potassium 5.0 mEq/L (3.3-5.0) 04/28/18 18:30 Chloride 103 mEq/L (97-110) 04/28/18 18: Carbon Dioxide 20 mEq/l (22-31) L 04/28/18 18:30 Anion Gap 15 mEq/L (6-14) H 04/28/18 18:30 BUN 35 mg/dL (7-23) H 04/28/18 18:30 Creatinine 1.0 mg/dL (0.6-1.0) 04/28/18 18:30 Estimated GFR 53 04/28/18 18:30 Glucose 181 mg/dL (70-100) H 04/28/18 18:30 Calcium 9.8 mg/dL (8.5-10.4) 04/28/18 18:30 POC Troponin I 0.00 ng/mL (0.00-0.08) 04/28/18 18:29 Troponin I < 0.012 ng/mL (0.000-0.034) 04/28/18 18:30 Visualized and Interpreted Chest x-ray results: Yes Chest X-Ray results: infiltrate, other (very rotated limiting eval) Visualized and Interpreted imaging results: Yes Interpretation: chest CT: small apical right ptx, extensive mucus plugging and extensive RLL consolidation, new rib fxs, t11 compression fracture Visualized and Interpreted EKG results: Yes EKG additional interpertation: atrial flutter/fib with rate of 130, incomplete RBBB, LAFB Assessment & Plan Assessment: Aspiration pneumonia (Acute) Leukocytosis (Acute) Respiratory distress (Acute) Severe sepsis (Acute) 82 yo F with PMH of dementia, CLL, a fib presenting with acute hypoxic respiratory failure following choking event # acute hypoxic respiratory failure: with choking event preceding her presentation and likely at least some component of aspiration pneumonitis but given extensive RLL consolidation and findings c/w sepsis query if there were some underlying pna preceding this event as well. Also contribution of right apical ptx, although this does appear small and unlikely to be the main etiology for her ongoing hypoxia. Will tx to ICU, continue NRB Hi flow o2. Pulmonary aware and bronchoscopy to be considered if not improving. # aspiration pneumonia/pneumonitis: as above, suspect that pna was present prior to the choking event given extensive RLL consolidation and elevated wbc-- with hx of prior choking event, perhaps patient with chronic aspiration and aspiration pna present on admission with concurrent choking event. Will start ctx/flagyl given pcn allergy, received levofloxacin in ER as well. [employer] eval requested. # sepsis: with wbc of 39k, HR of 130 initially with e/o pna as above. Abx as above, cultures pending, currently HD stable # pneumothorax: small right apical ptx, unclear etiology --high flow o2 possibly ? Does not require CT at this time, continue o2, monitor # a fib/flutter: with hx of same, rate currently coming back down, patient is on diltiazem and apixaban chronically--will hold apixaban for now given possible bronch in am, will start oral dilt and monitor rate # rib fractures: unclear age, will start rib protocol # T11 compression fracture: slight progression from prior, pt/ot to be involved # IP status, will need > 48 hours for eval/mgmt of above, given high risk illness requiring hi flow o2 will require ICU stay # DNR--confirmed with son who is MDPOA Patient new to my care. Old records reviewed and summarized as above. Care plan reviewed with ER doctor, further hx obtained from patients son present at bedside. > 40 min critical care time spent in evaluation of labs/imaging, coordination of care with consultants and ER physician
[2018-04-28] MEDS: DILTIAZEM 60 MG TAB PO SCH (21:19)
[2018-04-28] MEDS: IPRATROPIUM/ALBUTEROL 3 ML DEYVIAL IH SCH (21:43)
--- NOTE | 2018-04-28 22:42 | CPEKG ---
Test Reason : OPEN Blood Pressure : / mmHG Vent. Rate : 131 BPM Atrial Rate : 131 BPM P-R Int : 131 ms QRS Dur : 108 ms QT Int : 330 ms P-R-T Axes : 152 -73 090 degrees QTc Int : 488 ms A-flutter/fibrillation w/ complete AV block Incomplete RBBB and LAFB Low voltage, precordial leads Consider right ventricular hypertrophy Probable anterolateral infarct, old ST depression, probably rate related Confirmed by Sia Matos ([id number]) on 04/28/2018 10:41:36 PM Referred By: Confirmed By:Sia Matos
[2018-04-28] MEDS ORDERED: OLANZapine 5 MG TAB PO SCH (22:45)
[2018-04-29] MEDS: DILTIAZEM 60 MG TAB PO SCH ×4 (02:10→17:45)
[2018-04-29 04:17] LABS: PLATELET COUNT 127 10^3/uL (150-400)
[2018-04-29] MEDS: IPRATROPIUM/ALBUTEROL 3 ML DEYVIAL IH SCH ×4 (05:44→20:11)
--- NOTE | 2018-04-29 09:16 | SOAPPROG ---
SOAP Progress Note Assessment/Plan: Assessment: Shonna is an 82 yo female who was brought in from her assisted living following a choking incident. Heimlich maneuver was performed which dislodged most of the food, however she was persistently short of breath and in resp distress, so she was brought to the ED for evaluation. Another significant piece of food was removed with a scope in the ED. Chest CT revealed RLL consolidation and small R apical pneumothorax. She was given a dose of levaquin in the ED and was started on ceftriaxone and flagyl given her pcn allergy. Plan: Acute hypoxia- currently down to 2L02, continue to titrate based on needs. Likely r/t pneumonia. RLL pneumonia- possible aspiration with swallow difficulty (has had previous swallow trouble with aspiration about 3 months ago per son), but appears to have had underlying pna brewing as well. Vitals, labs responding well to ceftriaxone/flagyl, will continue and monitor. Continue duoneb and advair. R apical pneumothorax- small, continue to monitor O2 Swallow difficulty- eval by speech this AM for diet recommendations, may need to do formal swallow eval tomorrow H/o DVT- eliquis for prophylaxis CLL- white count 18 today, last office labs showed wbc around 14, followed outpt H/o loida- stable, olanzapine 15mg qhs Chronic atrial fibrillation- eliquis, dilt DNR- son is MDPOA Dispo- will transfer to PCU today as she is looking very stable and O2 requirements are down. Will switch to inpt as she will likely stay for 1-2 more nights 04/29/18 09:02 Subjective: Shonna is resting in bed this AM working with speech therapy. She says she is feeling much better today. Denies any respiratory distress or shortness of breath. Hungry for breakfast. Objective: Vital Signs Temp Pulse Resp BP Pulse Ox 37.3 C 86 18 99/53 L 93 04/29/18 04:00 04/29/18 06:00 04/29/18 06:00 04/29/18 06:00 04/29/18 06:00 Laboratory Results 04/29/18 04:05 04/29/18 04:05 04/28/18 04/29/18 04/30/18 05:59 05:59 05:59 Intake Total 1890 Output Total 250 Balance 1640 PT 13.8 SEC (12.0-15.0) 04/28/18 18:30 INR 1.04 (0.83-1.16) 04/28/18 18:30 Gen- alert, oriented, in no acute distress, vitals stable Head- normocephalic, atraumatic Resp- rhonchorous throughout R>L, O2 requirements down to 2LO2 CV- RRR, no murmurs, rubs, gallops Abd- SNT, nondistended Extremities- no peripheral edema Skin- warm and dry ICD10 Worksheet Patient Problems: Problems Problem Status Onset Aspiration pneumonia Acute Leukocytosis Acute Respiratory distress Acute Severe sepsis Acute Pneumonia Acute chronic disease mgmt/transitional care Acute
[2018-04-29] MEDS: LIDOCAINE 4%/MENTHOL 1% PATCH TD SCH (09:27)
[2018-04-29] MEDS: FLUTICASONE/SALMETER 250/50MCG DISKUS IH SCH ×2 (09:43→20:12)
[2018-04-29] MEDS: FLUTICASONE NASAL 120 SPRAYS/16 GM MDI EACHNARE SCH (09:43)
--- NOTE | 2018-04-29 09:53 | ASMTCMCOM ---
CM Note CM Note Notes: 82yr old female admitted after choking on food-resp failure, Asp PNA, Sepsis. She has a Hx of Dementia, Afib, DVT, CLL, PE, HTN, Chronic loida. Her son Asim is her MPOA. She lives at [facility] recommending Out-pt rehab. CM to follow. Date Signed: 04/29/2018 09:52 AM Electronically Signed By:Marylin Rueda LCSW
--- NOTE | 2018-04-29 10:00 | PDMN ---
Medical Necessity Medical necessity: [facility] M160 Sepsis, M283 aspiration pneumonia: 82 yo w/ Aspiration pneumonia (Acute), Leukocytosis (Acute) WBC 39.6, Respiratory distress (Acute) and Severe sepsis (Acute). HR 130 on admit. Acute hypoxic respiratory failure: with choking event preceding her presentation and likely at least some component of aspiration pneumonitis but given extensive RLL consolidation and findings c/w sepsis query if there were some underlying pna preceding this event as well. Pt w/ rib fractures: unclear age, will start rib protocol. Pt w/ T11 compression fracture: slight progression from prior, pt/ot to be involved. IP status, will need > 48 hours for eval/mgmt of above, given high risk illness requiring hi flow o2 will require ICU stay. Hx atrial fibrillation, cancer (CLL), dementia, DVT, hypertension, pulmonary embolism, psychiatric history (chronic loida)
[2018-04-29] MEDS ORDERED: ACETAMINOPHEN 325 MG TAB PO PRN (11:21)
[2018-04-29] MEDS ORDERED: traMADol 50 MG TAB PO PRN (14:51)
[2018-04-29] MEDS: NS 1,000 ML IV SCH (17:23)
--- NOTE | 2018-04-29 18:46 | GCON ---
PULMONARY CONSULTATION DATE OF CONSULTATION: 04/29/2018 HISTORY OF PRESENT ILLNESS: This patient is an 82-year-old female with a history of dementia and wha t sounds to be like bipolar disorder, who [facility] after she was found choking on food. A Heimlich maneuver was attempted at the facility, but that did not seem to produce any fo od. She was therefore brought to the emergency department with some respiratory distress, requiring non-rebreather of oxygen. The Emergency Department performed a fiberoptic evaluation of her upper ai rway, which did produce her coughing out a large piece of meat at that time. She had a CT scan that showed infiltrates in her right lung, with some mucus plugging remaining in her right mainstem bronch us, but by the time I saw her this morning, her oxygen saturation was stable on room air. She denied any symptoms of chest pain or shortness of breath, and felt that the situation had resolved. She connolly d not been feeling ill prior to that, and had no cough, fevers, chills, or sweats prior to that event . PAST MEDICAL HISTORY: Includes: 1. Dementia as described above. 2. [place]. 3. Atrial fibrillation. 4. CLL. 5. DVT with pulmonary embolism. 6. Hypertension. 7. Remote rib fractures. PAST SURGICAL HISTORY: None. SOCIAL HISTORY: She is a nonsmoker. FAMILY HISTORY: Noncontributory. MEDICATIONS: Medications as an outpatient include: Tums, B12, folate, Flonase, Advair, Zyprexa, Lid oderm, fish oil. PHYSICAL EXAM: VITAL SIGNS: This morning her blood pressure was 108/63, heart rate 89, respirations 19, oxygen saturation 93% on room air. GENERAL: She was a very pleasant woman in no apparent distr ess and able to speak in full sentences without using accessory muscles for breathing. HEENT: Pupil s equally round and reactive to light. Nonicteric and noninjected. Mucous membranes were moist, wit hout erythema or exudate. NECK: Supple, without adenopathy or jugular vein distention. Breath soun ds were clear to auscultation bilaterally. Quite equal, with no obvious wheezing. HEART: Regular r ate and rhythm, without obvious murmurs, rubs, gallops. ABDOMEN: Soft, nontender, nondistended, wit hout hepatosplenomegaly. EXTREMITIES: Showed no clubbing, cyanosis, or edema. OBJECTIVE DATA: Includes; the CT scan as described above. Today's chest x-ray shows some persistent right lower lobe consolidation and almost undetectable tiny apical pneumothorax, which was seen on t he CT scan. Her white count on admission was 39.6, today is 18.7, hematocrit of 34, platelets of 127. Basic meta bolic panel shows a sodium 137, potassium 5.1, chloride 105, bicarb 20, BUN 30, creatinine 0.8. Urin alysis was unremarkable. Blood cultures were drawn yesterday, were currently negative. ASSESSMENT/PLAN: 1. Aspiration of food, which appears to have been recovered at this time: Because of the stability of the patient, I do not feel that urgent bronchoscopy is required. Should she continue to have an o xygen requirement, may reconsider that. Her substantial drop in white count is certainly reflective of improvement, as well as her physical exam. 2. Pneumothorax: This is probably related to her severe coughing. It is quite small. Ongoing oxyg en would be the only treatment. A chest tube is not indicated at this time. 3. Atrial fibrillation: She seems to be well controlled on diltiazem at this time, which I believe is her home medication. 4. Presumed asthma: She is getting bronchodilator therapy and this seems to be quite stable at this time. She can certainly go to the floor today, and her case was discussed in detail with Dr. Moctezuma. /[id number]/MODL
[2018-04-29] MEDS ORDERED: DILTIAZEM 25 MG/5 ML VIAL IVP SCH (20:00)
[2018-04-29] MEDS: OLANZapine DISINTEGR 5 MG TAB PO SCH (20:49)
[2018-04-30] MEDS: NS 1,000 ML IV SCH ×2 (05:36→20:31)
[2018-04-30] MEDS: IPRATROPIUM/ALBUTEROL 3 ML DEYVIAL IH SCH ×4 (05:47→22:53)
[2018-04-30] MEDS: LIDOCAINE 4%/MENTHOL 1% PATCH TD SCH (08:41)
--- NOTE | 2018-04-30 08:47 | SOAPPROG ---
SOAP Progress Note Assessment/Plan: Assessment: Plan: 04/30/18 08:47 probable aspiration pneumonia. Swallow study planned this am. Will discuss results with son UMA Ingram. CLL--stable range dementia and chronic loida--limited insight into situation multiple chest injuries--she is surprisingly comfortable h/o dvt and intermittent a fib--plan on resuming DOAC rapid a fib--currently NSR, follow Subjective: Shonna was sleeping well when I entered the room. She is pleasant and appears comfortable. She denies shortness of breath or cough. She denies pain in her ribs with deep breath. She states she is hungry. Objective: Vital Signs Temp Pulse Resp BP Pulse Ox 36.6 C 87 20 112/62 92 04/30/18 03:36 04/30/18 05:47 04/30/18 05:47 04/30/18 03:36 04/30/18 05:47 Laboratory Results 04/30/18 03:43 04/30/18 03:43 04/29/18 04/30/18 05/01/18 05:59 05:59 05:59 Intake Total 1490 1135 100 Output Total 250 1100 Balance 1240 35 100 PT 13.8 SEC (12.0-15.0) 04/28/18 18:30 INR 1.04 (0.83-1.16) 04/28/18 18:30 Gen: initially sleeping, responds appropriately, generally and does not appear distressed HEENT: slight swelling below right eye. Mouth dry. Voice on the quieter side Lungs: diminished breath sounds, faint expiratory wheeze. Cough effort is limited. No obvious pain with deep breaths Heart: RRR tele, sinus 95's Abd: + bs soft LE's no edema Swallow study pending CLL with chronic elevation of WBC at about this range ICD10 Worksheet Patient Problems: Problems Problem Status Onset Aspiration pneumonia Acute Leukocytosis Acute Respiratory distress Acute Severe sepsis Acute Pneumonia Acute chronic disease mgmt/transitional care Acute
[2018-04-30] MEDS: FLUTICASONE NASAL 120 SPRAYS/16 GM MDI EACHNARE SCH (08:59)
[2018-04-30] MEDS: FLUTICASONE/SALMETER 250/50MCG DISKUS IH SCH ×2 (11:59→22:53)
--- NOTE | 2018-04-30 16:05 | ASMTCMCOM ---
CM Note CM Note Notes: PT/OT recommending home care. Spoke with pt's son Asim who said they have used [facility] in the past and would like to use them again. Referral sent via [facility]. Pt will return to [facility] when medically ready. Contacted [facility] re pt returning and whether they will need to assess prior to her d/c. They have not returned the call. CM will continue to follow. Date Signed: 04/30/2018 04:05 PM Electronically Signed By:BRENDEN Stevenson
[2018-04-30] MEDS: OLANZapine DISINTEGR 5 MG TAB PO SCH ×2 (20:32→23:23)
[2018-04-30] MEDS: DILTIAZEM 60 MG TAB PO SCH (20:33)
[2018-05-01] MEDS: DILTIAZEM 60 MG TAB PO SCH ×2 (00:49→05:34)
[2018-05-01] MEDS: NS 1,000 ML IV SCH ×3 (05:34→23:54)
[2018-05-01] MEDS: IPRATROPIUM/ALBUTEROL 3 ML DEYVIAL IH SCH ×4 (06:00→20:26)
[2018-05-01] MEDS: FLUTICASONE NASAL 120 SPRAYS/16 GM MDI EACHNARE SCH (09:01)
[2018-05-01] MEDS: LIDOCAINE 4%/MENTHOL 1% PATCH TD SCH (09:01)
--- NOTE | 2018-05-01 11:15 | GDS ---
Please refer to addendum discharge summary report MR# [id number] ( / [id number]/MODL) dictated by KYLIE Guerrero on 05/02/2018, selvin 05/02/2018. PRIMARY DIAGNOSIS: Aspiration pneumonia. HISTORY OF PRESENTING ILLNESS: The patient is an 82-year-old female who lives at an assisted living facility. She was brought in by her caretakers to the emergency department after experiencing a choking episode on some food. Heimlich maneuver was performed at the assisted-living facility and a significant amount of food was dislodged. However, they were concerned about her breathing and continued choking following the removal of the food, so they brought her in. The scope in the ED revealed significant amount of food still in her esophagus, which was removed, but then it was discovered that she had an underlying pneumonia possibly related to persistent aspiration while eating. Speech recommended a video 4.0 speech study, which demonstrated significant aspiration with eating. This was discussed with the patient and her son who declined a PEG tube for tube feedings at this time and wished to continue a dysphagia diet with normal eating back at her assisted living facility. She was initially given a dose of Levaquin in the emergency department and then switched to Rocephin and Flagyl given her penicillin allergy. She will be discharged back to her assisted living facility today on Levaquin and clindamycin for 5 more days. She will plan to follow up as an outpatient with her primary care provider in the next week. DISCHARGE MEDICATIONS: Include Albuterol 2 puffs q.4 hours p.r.n. dyspnea, clindamycin 150 mg p.o. q.8 hours x5 days, diltiazem extended release 240 mg p.o. daily, levofloxacin 500 mg p.o. daily x5 days, folic acid 0.4 mg p.o. daily , fish oil 1000 mg p.o. daily, Flonase nasal spray 1 spray each naris daily, vitamin B12 1000 mcg p.o. daily, Tums 500 mg p.o. daily, Senna Lax 8.6 mg p.o. daily, Zyprexa 15 mg p.o. q.h.s., Lidoderm 5% patch 1 patch transdermally daily , Advair 250-50 one puff inhaled b.i.d., zinc 50 mg p.o. daily, Aldactone 25 mg p.o. daily, MiraLAX 17 g p.o. daily p.r.n. constipation, Eliquis 2.5 mg p.o. b.i.d., Tylenol 500 mg p.o. q.6 hours p.r.n. pain. /[id number]/MODL MTDD
[2018-05-01] MEDS: FLUTICASONE/SALMETER 250/50MCG DISKUS IH SCH ×2 (11:20→20:29)
--- NOTE | 2018-05-01 13:04 | PDIAF ---
- Diagnosis Diagnosis: Aspiration pneumonia Code Status: Do Not Resuscitate - Medication Management Discharge Medications: Medications to Continue on Transfer Calcium Carbonate [Tums 500MG (*)] 500 mg PO DAILY 07/15/17 [Last Taken 04/28/18 ] Cyanocobalamin [Vitamin B12 (*)] 1,000 mcg PO DAILY 07/15/17 [Last Taken ] FOLIC ACID 0.4 mg PO DAILY 07/15/17 [Last Taken 04/28/18] Fluticasone Nasal [Flonase Nasal [place]] 1 sprays EACHNARE DAILY 07/15/17 [Last Taken 04/28/18] Fluticasone/Salmeter 250/50Mcg [Advair 250/50 (*)] 1 puffs IH BID 07/15/17 [ Last Taken 04/28/18 08:00] Lidocaine 5% [Lidoderm 5% Patch] 1 ea TD DAILY 07/15/17 [Last Taken 04/28/18] OLANZapine [Zyprexa] 15 mg PO HS 07/15/17 [Last Taken 04/28/18] [place]-3 Fatty Acids [Fish Oil 1000 mg (*)] 1,000 mg PO DAILY 07/15/17 [Last Taken 04/28/18] Sennosides [Senna Lax] 8.6 mg PO DAILY 07/15/17 [Last Taken 04/28/18] Zinc Gluconate [Zinc Chelated 50mg (*)] 50 mg PO DAILY 07/15/17 [Last Taken ] Apixaban [Eliquis] 2.5 mg PO BID tab 07/20/17 [Last Taken 04/28/18 08:00] Diltiazem Xr [Dilacor Xr] 240 mg PO DAILY cap 07/20/17 [Last Taken 04/28/18] Polyethylene Glycol 3350 [Miralax 17 gm (*)] 17 gm PO DAILY PRN pkt 07/20/17 [ Last Taken Unknown] Spironolactone [Aldactone 25 MG (*)] 25 mg PO DAILY tab 07/20/17 [Last Taken ] Acetaminophen [Tylenol ES 500 mg (*)] 500 mg PO HS 04/28/18 [Last Taken 04/27/18 ] Acetaminophen [Tylenol ES 500 mg (*)] 500 mg PO Q6 PRN 04/28/18 [Last Taken 08:16] Albuterol [Proventil Neb] 3 ml IH Q2HRS PRN deyvial 05/01/18 [Last Taken Unknown] Clindamycin 150 mg PO Q8HRS 5 Days cap 05/01/18 [Last Taken Unknown] Diltiazem [Cardizem 60 MG (*)] 60 mg PO Q6HRS tab 05/01/18 [Last Taken Unknown] levOFLOXACIN [levAQUIN (*)] 500 mg PO DAILY AT 10AM #5 tab 05/01/18 [Last Taken Unknown] Discharge Medications: Refer to the Discharge Home Medication list for PRN reason. - Orders Isolation Type: None Diet Recommendation: no restrictions on diet Diet Texture: Dysphagia 1 - Pureed, [place] Thick Liquids, Meds Crushed in Puree - Follow Up Care Current Providers and Referrals: Patient,NotPresent [Unknown] - As per Instructions
[2018-05-01] MEDS: CLINDAMYCIN 150 MG CAP PO SCH ×2 (13:55→21:15)
--- NOTE | 2018-05-01 14:14 | ASMTLACE ---
LACE Length of stay for Answers: 2 days current admission Acuity / Level of Answers: No Care: Did the patient have an inpatient admission? Comorbidities - select Answers: Any tumor (including all that apply lymphoma or leukemia) Dementia Other Notes: Respiratory failure-asp PNA # of Emergency department Answers: 1-2 visits in the last 6 months Social determinants Answers: Mental health diagnosis (anxiety, depression, pers onality disorders, etc.) Score: 12 Date Signed: 05/01/2018 02:13 PM Electronically Signed By:Lorna Rivers
--- NOTE | 2018-05-01 14:16 | ASMTDCNOTE ---
Case Management Discharge Discharge Order Complete? Answers: Yes Patient to Obtain Answers: Other Notes: [facility] Medications Transportation Arranged Answers: Family/Friends Transport will Pick (Date 05/01/2018 05:00 PM & Time) Faxed Final Orders Answers: Yes Agency/Facility Transfer Answers: Yes Report Printed & Faxed to Receiving Agency Family Notified Answers: Yes Discharge Comments Notes: Pt d/fiona to [facility] and [facility] PT/OT. Son is transporting and will be here at 5:00PM. Date Signed: 05/01/2018 02:15 PM Electronically Signed By:Lorna Rivers
[2018-05-01] MEDS: DILTIAZEM CD 120 MG CAP PO SCH (14:57)
--- NOTE | 2018-05-01 15:56 | ASMTCMCOM ---
CM Note CM Note Notes: Pt's d/c cancelled due to decrease in blood pressure. In addition PT reported that they will be recommending SNF rehab. Son, [facility] have been told of delay in d/c; they have not yet been informed of recommendation to SNF. CM to follow. D/C Plan: SNF vs [facility] with [facility] Date Signed: 05/01/2018 03:55 PM Electronically Signed By:Lorna Rivers
[2018-05-01] MEDS ORDERED: DILTIAZEM 30 MG TAB PO ONE (23:45)
[2018-05-01] MEDS ORDERED: OLANZapine DISINTEGR 5 MG TAB PO SCH (23:45)
[2018-05-02] MEDS: IPRATROPIUM/ALBUTEROL 3 ML DEYVIAL IH SCH (05:28)
[2018-05-02] MEDS: CLINDAMYCIN 150 MG CAP PO SCH ×2 (05:39→13:26)
--- NOTE | 2018-05-02 08:46 | SOAPPROG ---
SOAP Progress Note Assessment/Plan: Assessment: Plan: 04/30/18 08:47 probable aspiration pneumonia. Swallow study planned this am. Will discuss results with son UMA Ingram. CLL--stable range dementia and chronic loida--limited insight into situation multiple chest injuries--she is surprisingly comfortable h/o dvt and intermittent a fib--plan on resuming DOAC rapid a fib--currently NSR, follow 05/02/18 08:44 aspiration pneumonia with acute on chronic challenges. Choking episode with lodged food trigger hospital admission. Plan on d/c to [place] with [facility]. Pt and son ok with dietary/ feeding guidelines CLL--WBC a bit higher, recheck at baseline a fib--now NSR, continue dilt and DOAC Subjective: Shonna is doing well with her pureed diet. No shortness of breath. Cough is minimal. Minimal rib pain. appetite is good per her report. Objective: Vital Signs Temp Pulse Resp BP Pulse Ox 36.8 C 97 14 124/68 H 93 05/02/18 08:00 05/02/18 08:00 05/02/18 08:00 05/02/18 08:00 05/02/18 08:00 Microbiology 04/29/18 04:50 Urine Culture - Final Urine,Clean Catch Three [place] Types Laboratory Results 04/30/18 03:43 04/30/18 03:43 05/01/18 05/02/18 05/03/18 05:59 05:59 05:59 Intake Total 2250 2469 Output Total 1925 550 Balance 325 1919 PT 13.8 SEC (12.0-15.0) 04/28/18 18:30 INR 1.04 (0.83-1.16) 04/28/18 18:30 Gen: NAD, pleasant Lungs: diminished BS in bases, weak cough effort, wheezes gone Heart: RRR Abd + bs soft nt LE's no edema no new labs ICD10 Worksheet Patient Problems: Problems Problem Status Onset Aspiration pneumonia Acute Leukocytosis Acute Respiratory distress Acute Severe sepsis Acute Pneumonia Acute chronic disease mgmt/transitional care Acute
[2018-05-02] MEDS: LIDOCAINE 4%/MENTHOL 1% PATCH TD SCH (09:02)
[2018-05-02] MEDS: DILTIAZEM CD 120 MG CAP PO SCH (09:02)
[2018-05-02] MEDS: FLUTICASONE NASAL 120 SPRAYS/16 GM MDI EACHNARE SCH (09:02)
[2018-05-02] MEDS: FLUTICASONE/SALMETER 250/50MCG DISKUS IH SCH (10:34)
[2018-05-02 12:18] VITALS: BP 137/81
--- NOTE | 2018-05-02 13:24 | PDIAF ---
- Diagnosis Diagnosis: Aspiration pneumonia Code Status: Do Not Resuscitate - Medication Management Discharge Medications: Medications to Continue on Transfer Calcium Carbonate [Tums 500MG (*)] 500 mg PO DAILY 07/15/17 [Last Taken 04/28/18 ] Cyanocobalamin [Vitamin B12 (*)] 1,000 mcg PO DAILY 07/15/17 [Last Taken ] FOLIC ACID 0.4 mg PO DAILY 07/15/17 [Last Taken 04/28/18] Fluticasone Nasal [Flonase Nasal [place]] 1 sprays EACHNARE DAILY 07/15/17 [Last Taken 04/28/18] Fluticasone/Salmeter 250/50Mcg [Advair 250/50 (*)] 1 puffs IH BID 07/15/17 [ Last Taken 04/28/18 08:00] Lidocaine 5% [Lidoderm 5% Patch] 1 ea TD DAILY 07/15/17 [Last Taken 04/28/18] OLANZapine [Zyprexa] 15 mg PO HS 07/15/17 [Last Taken 04/28/18] [place]-3 Fatty Acids [Fish Oil 1000 mg (*)] 1,000 mg PO DAILY 07/15/17 [Last Taken 04/28/18] Sennosides [Senna Lax] 8.6 mg PO DAILY 07/15/17 [Last Taken 04/28/18] Zinc Gluconate [Zinc Chelated 50mg (*)] 50 mg PO DAILY 07/15/17 [Last Taken ] Apixaban [Eliquis] 2.5 mg PO BID tab 07/20/17 [Last Taken 04/28/18 08:00] Diltiazem Xr [Dilacor Xr] 240 mg PO DAILY cap 07/20/17 [Last Taken 04/28/18] Polyethylene Glycol 3350 [Miralax 17 gm (*)] 17 gm PO DAILY PRN pkt 07/20/17 [ Last Taken Unknown] Spironolactone [Aldactone 25 MG (*)] 25 mg PO DAILY tab 07/20/17 [Last Taken ] Acetaminophen [Tylenol ES 500 mg (*)] 500 mg PO HS 04/28/18 [Last Taken 04/27/18 ] Acetaminophen [Tylenol ES 500 mg (*)] 500 mg PO Q6 PRN 04/28/18 [Last Taken 08:16] Albuterol [Proventil Neb] 3 ml IH Q2HRS PRN deyvial 05/01/18 [Last Taken Unknown] Clindamycin 150 mg PO Q8HRS 5 Days cap 05/01/18 [Last Taken Unknown] Diltiazem [Cardizem 60 MG (*)] 60 mg PO Q6HRS tab 05/01/18 [Last Taken Unknown] levOFLOXACIN [levAQUIN (*)] 500 mg PO DAILY AT 10AM #5 tab 05/01/18 [Last Taken Unknown] Diltiazem Cd [Cardizem ER 120 MG (*)] 240 mg PO DAILY cap 05/02/18 [Last Taken Unknown] [employer] [facility] [facility] Antibiotics: levaquin 500 mg daily for 4 days and clindamycin 300 mg TID for 4 days [employer] [facility] Antibiotic Stop Date: 05/06/18 Discharge Medications: Refer to the Discharge Home Medication list for PRN reason. PICC Care - Routine: N/A - Orders Services needed: Registered Nurse, Physical Therapy, Occupational Therapy, Speech Language Pathologist Isolation Type: None Diet Recommendation: no restrictions on diet Diet Texture: Dysphagia 1 - Pureed, [place] Thick Liquids, Meds Crushed in Puree Tube feeding: n/a Reed: No Wound Care Instructions: n/a - Labs/Radiology CBC w/diff Date: 05/09/18 CMP Date: 05/09/18 - Follow Up Care Current Providers and Referrals: Patient,NotPresent [Unknown] - As per Instructions
--- NOTE | 2018-05-02 14:15 | ASMTCMCOM ---
CM Note CM Note Notes: CM spoke to MEENA Back and KYLIE Manjarrez regarding d/c POC. PT is recommending SNF. CM spoke to pts son Asim on the phone. Asim is in agreement for pt to go to SNF. Asim reports that pt has been to [facility] before and had a good experience. CM met w/ pt for dispo planning. Pt is on board w/ going to SNF. [facility] is able to accept. DC orders sent to [facility]. CM spoke w/ Cherie and she set up transportation through [facility]. sales support associate is scheduled for 1:30PM. CM notified son of the d/c. CM notified [place] of the d/c to SNF. CM provided MEENA Back w/ phone number to give report. CM available for changes. Plan: [facility] Date Signed: 05/02/2018 02:15 PM Electronically Signed By:JERONIMO Parker
--- NOTE | 2018-05-02 15:36 | ASDISCHSUM ---
Discharge Information Plan Status:SNF Medically Cleared to Leave:05/02/2018 Discharge Date:05/02/2018 02:07 PM D/C Disposition:Assisted Living ADT D/C Disposition:[facility] Projected Discharge Date:05/02/2018 05:00 PM Transportation at D/C:Family Discharge Delay Reason: Follow-Up Date:05/02/2018 05:00 PM Discharge Slot: Final Diagnosis: Placement Information Referral Type:*Home Health Care Services Referral ID:[id number] Provider Name: Address 1: Phone Number: Address 2: Fax Number: City: Selection Factors: State: Referral Type:Assisted Living Residence Referral ID:[id number] Provider Name: Address 1: Phone Number: Address 2: Fax Number: City: Selection Factors: State: Referral Type:*Detention/SNF Referral ID:[id number] Provider Name:[facility] Address 1:[address] Address 2: City:[place] Selection Factors: State:[place] Patient Contact Information Contact Name:MARY Relationship:Son Address:[address] City:[place] Alternate Phone: State/Zip Code:[place] [address] Email: Financial Information Financial Class:Medicare Primary Plan Desc:MEDICARE INPATIENT Primary Plan Number:[id number] Secondary Plan Desc: Secondary Plan Number: Assessment Information LACE LACE Length of stay for Answers: 2 days current admission Acuity / Level of Answers: No Care: Did the patient have an inpatient admission? Comorbidities - select Answers: Any tumor (including all that apply lymphoma or leukemia) Dementia Other Notes: Respiratory failure-asp PNA # of Emergency department Answers: 1-2 visits in the last 6 months Social determinants Answers: Mental health diagnosis (anxiety, depression, pers onality disorders, etc.) Score: 12 Date Signed: 05/01/2018 02:13 PM Electronically Signed By:Lorna Rivers [facility] CM Progress Note CM Note CM Note Notes: 82yr old female admitted after choking on food-resp failure, Asp PNA, Sepsis. She has a Hx of Dementia, Afib, DVT, CLL, PE, HTN, Chronic loida. Her son Asim is her MPOA. She lives at [facility] recommending Out-pt rehab. CM to follow. Date Signed: 04/29/2018 09:52 AM Electronically Signed By:Marylin Rueda LCSW [facility] CM Progress Note CM Note CM Note Notes: PT/OT recommending home care. Spoke with pt's son Asim who said they have used [facility] in the past and would like to use them again. Referral sent via [facility]. Pt will return to [facility] when medically ready. Contacted [facility] pt returning and whether they will need to assess prior to her d/c. They have not returned the call. CM will continue to follow. Date Signed: 04/30/2018 04:05 PM Electronically Signed By:BRENDEN Stevenson Case Management Discharge Plan Note Case Management Discharge Discharge Order Complete? Answers: Yes Patient to Obtain Answers: Other Notes: [facility] Transportation Arranged Answers: Family/Friends Transport will Pick (Date 05/01/2018 05:00 PM & Time) Faxed Final Orders Answers: Yes Agency/Facility Transfer Answers: Yes Report Printed & Faxed to Receiving Agency Family Notified Answers: Yes Discharge Comments Notes: Pt d/fiona to [facility] and [facility] PT/OT. Son is transporting and will be here at 5:00PM. Date Signed: 05/01/2018 02:15 PM Electronically Signed By:Lorna Rivers [facility] Progress Note CM Note CM Note Notes: Pt's d/c cancelled due to decrease in blood pressure. In addition PT reported that they will be recommending SNF rehab. Son, Luis and [facility] have been told of delay in d/c; they have not yet been informed of recommendation to SNF. CM to follow. D/C Plan: SNF vs [facility] Date Signed: 05/01/2018 03:55 PM Electronically Signed By:Lorna Rivers [facility] Progress Note CM Note CM Note Notes: CM spoke to MEENA Back and KYLIE Manjarrez regarding d/c POC. PT is recommending SNF. CM spoke to pts son Asim on the phone. Asim is in agreement for pt to go to SNF. Asim reports that pt has been to [facility] before and had a good experience. CM met w/ pt for dispo planning. Pt is on board w/ going to SNF. [facility] is able to accept. DC orders sent to [facility]. CM spoke w/ Cherie and she set up transportation through [facility]. computer support analyst is scheduled for 1:30PM. CM notified son of the d/c. CM notified [place] of the d/c to SNF. CM provided MEENA Back w/ phone number to give report. CM available for changes. Plan: [facility] Date Signed: 05/02/2018 02:15 PM Electronically Signed By:JERONIMO Parker Intervention Information Intervention Type:*Incorrect Registration Date of Service:04/29/2018 09:16 AM Patient Type:Observation Staff Member:Adry Michelle Hours: Discipline: Severity: Comment: Intervention Type:*IM-Signed Date of Service:05/01/2018 10:40 AM Patient Type:Inpatient Staff Member:Alyce Carrillo Hours: Discipline: Severity: Comment:
--- NOTE | 2018-05-02 19:09 | GDS ---
ADDENDUM to Discharge Summary report MR#[id number] ( /[id number]/MODL ) dictated by Deborah Moctezuma NP on 05/01/2018; selvin 05/02/2018. Patient was kept another day due to lower blood pressures noted yesterday. She was given supportive IV fluids. She has continued to make progress. Blood pressure has improved. She is not requiring supplemental oxygen. Underlying aspiration pneumonia has some acute on chronic issues, which seem to be improving. She will be discharged on clindamycin, plus Levaquin. She will return to her [facility] with home health care support. Plan has been discussed with the patient and son, her [id number]. /[id number]/MODL sepsis--improved with response to therapy quite quickly acute respiratory failure--resolved with quick response to therapy MTDD
== END 2018-05-02 14:07 | DRG 871 ==
LOC: EDUNIT# → OBSVTOIN 19:56 → F2N 20:03 → F2W 04-29 16:45
PROVIDERS: ADMIT Internal Medicine; ATTEND Internal Medicine
PROC: 0CJS8ZZ Inspection of Larynx, Via Natural or Artificial Opening Endoscopic (ICD-10-PCS; principal; 2018-04-28)
DX: A41.9 Sepsis, unspecified organism (principal); R65.20 Severe sepsis without septic shock; J69.0 Pneumonitis due to inhalation of food and vomit; J96.00 Acute respiratory failure, unspecified whether with hypoxia or hypercapnia; J93.9 Pneumothorax, unspecified; C91.90 Lymphoid leukemia, unspecified not having achieved remission; R13.12 Dysphagia, oropharyngeal phase; I48.2 Chronic atrial fibrillation; J45.909 Unspecified asthma, uncomplicated; F03.90 Unspecified dementia, unspecified severity, without behavioral disturbance, psychotic disturbance, mood disturbance, and anxiety; F31.9 Bipolar disorder, unspecified; Z86.711 Personal history of pulmonary embolism; Z86.718 Personal history of other venous thrombosis and embolism; Z79.02 Long term (current) use of antithrombotics/antiplatelets; Z66 Do not resuscitate
CPT/HCPCS: 84484-PO; 92526-GN; 92611-GN; 96374; 97162-GP; 97166-GO; 97530-GP; 97535-GO; G0515-GO; G8978-GP-CK; G8979-GP-CI; G8987-GO-CK; G8988-GO-CJ; G8991-GO-CJ; G8992-GO-CK; G8996-GN-CL; G8997-GN-CJ; J0696; J1170; J1956; J2405; J2930; J7613

== ENCOUNTER 2018-06-21 18:37 | Inpatient (IN) | payer OTHER ==
--- NOTE | 2018-06-21 18:48 | EDPHY ---
H & P Time Seen by Provider: 06/21/18 18:37 HPI/ROS: CHIEF COMPLAINT: Shaking, diffuse pain HISTORY OF PRESENT ILLNESS: Patient is an 82-year-old female with a history of dementia, atrial fibrillation but not on blood thinners as well as leukemia and COPD. residential sent her here with reports to EMS that she was shaking all over and was complaining of pain in various parts of her body however they have been inconsistent. They are not sure that she has fallen or not. No witness falls. No visible injuries. No vomiting or diarrhea. The patient is alert and oriented to person but not place or time. According to paramedics this is somewhat her baseline. Here she was found to have a fever. When I asked here if she has any pain she the pointed to her left hip. According to EMS however she did point to different locations every time they asked. She has full range of motion in her legs and arms without difficulty or pain. Severity: Moderate Modifying factors: None REVIEW OF SYSTEMS: Unable to obtain secondary to condition EXAM: GENERAL: Thin, tremor HEAD: Atraumatic, normocephalic. EYES: Pupils equal round and reactive to light, extraocular movements intact, sclera anicteric, conjunctiva are normal. ENT: TMs normal, nares patent, oropharynx clear without exudates. Moist mucous membranes. NECK: Normal range of motion, supple without lymphadenopathy or JVD. LUNGS: Breath sounds clear to auscultation bilaterally and equal. No wheezes rales or rhonchi. HEART: Regular rate and rhythm without murmurs, rubs or gallops. ABDOMEN: Soft, nontender, normoactive bowel sounds. No guarding, no rebound. No masses appreciated. BACK: No CVA tenderness, no spinal tenderness, step-offs or deformities EXTREMITIES: Normal range of motion, no pitting or edema. No clubbing or cyanosis. NEUROLOGICAL: Cranial nerves II through XII grossly intact. Normal speech, normal gait. 5/5 strength, normal movement in all extremities, normal sensation , normal reflexes PSYCH: Pleasant, confused SKIN: Very thin, no edema, small bruising to lower legs do not appear new or significant. Source: EMS, residential records Exam Limitations: No limitations - Medical/Surgical History Hx Chronic Respiratory Disease: Yes Hx Diabetes: No Hx Cardiac Disease: Yes Hx Renal Disease: No Hx Cirrhosis: No Hx Alcoholism: No Hx HIV/AIDS: No - Family History Significant Family History: No pertinent family hx - Social History Alcohol Use: Sober Constitutional: Initial Vital Signs Temperature (C) 39.8 C H 06/21/18 18:49 Heart Rate 108 H 06/21/18 18:49 Respiratory Rate 18 06/21/18 18:49 Blood Pressure 141/72 H 06/21/18 18:49 O2 Sat (%) 92 06/21/18 18:49 O2 Delivery Mode Room Air Allergies/Adverse Reactions: Penicillins Allergy (Verified 06/21/18 19:21) Home Medications: Medication Instructions Recorded Acetaminophen [Tylenol ES 500 mg 500 mg PO HS 06/21/18 (*)] Acetaminophen [Tylenol ES 500 mg 500 mg PO Q6HRS PRN 06/21/18 (*)] Albuterol [Proventil Neb] 3 ml IH Q2HRS PRN 06/21/18 Apixaban [Eliquis] 2.5 mg PO BID 06/21/18 Calcium Carbonate [Tums 500MG (*)] 500 mg PO DAILY 06/21/18 Cyanocobalamin [Vitamin B12 (*)] 1,000 mcg PO DAILY 06/21/18 Diltiazem HCl [Diltiazem 24Hr ER] 240 mg PO DAILY 06/21/18 Fluticasone Nasal [Flonase Nasal 1 sprays EACHNARE DAILY 06/21/18 [place]] Fluticasone/Vilanterol [Breo 1 inh IH DAILY 06/21/18 Ellipta 100-25 Mcg INH] Folic Acid 0.4 mg PO DAILY 06/21/18 Herbals/Supplements -Info Only 1 ea PO DAILY 06/21/18 Lidocaine 5% [Lidoderm 5% Patch] 1 ea TD DAILY 06/21/18 OLANZapine [Olanzapine] 15 mg PO HS 06/21/18 [place]-3 Fatty Acids [Fish Oil 1000 1,000 mg PO DAILY 06/21/18 mg (*)] Polyethylene Glycol 3350 [Miralax 17 gm PO Q12HRS PRN 06/21/18 17 gm (*)] Sennosides [Senokot] 8.6 mg PO DAILY 06/21/18 Spironolactone [Aldactone 25 MG 25 mg PO DAILY 06/21/18 (*)] Azithromycin [Zithromax] 250 mg PO DAILY #3 tab 06/22/18 Cefuroxime Axetil [Ceftin (*)] 250 mg PO BID #9 tab 06/22/18 predniSONE 20 mg PO DAILY #5 tablet 06/22/18 Medical Decision Making - Diagnostics Imaging: Discussed imaging studies w/ pediatric nephrologist Radiologist ED Course/Re-evaluation: The patient meets criteria for sepsis but not severe sepsis. I will give her antibiotics and fluid bolus. 7:50 p.m. I discussed the case with Dr. Delgado. She will admit to the medical service. 8:40 p.m. I and discovered the patient is a patient of Dr. Vargas. Will page the office to admit. 9:30 p.m. For the last hour we have been trying to get a hold of someone from Dr. Vargas office. There phone service does not seem to working and the several phone numbers we have seem to lead to the same place. Spoke again with Dr. Delgado who will admit for now. 9:35 p.m. we were able to get a hold of Pérez Cortes who agrees to the admission and will come to evaluate. Differential Diagnosis: Partial list of the Differential diagnosis considered include but were not limited to; sepsis, urinary tract infection, pneumonia and although unlikely based on the history and physical exam, I also considered trauma, head injury, meningitis. Other Provider: Critical care time spent by me, Dr. Velasquez exclusive with this patient was 45 minutes, exclusive of the PA time exclusive of procedures. The organ system that was at risk was cardiovascular and I gave IV fluids, antibiotics, consultation and admission to prevent worsening of the patient's condition - Data Points Laboratory Results: Laboratory Results 06/21/18 19:00 06/21/18 19:00 06/21/18 19:00 Smear Review By Pramod LIN MD Microbiology Results: MICROBIOLOGY 06/21/18 19:00 Unspecified Urine Culture - Preliminary Enterococcus Faecalis 06/21/18 19:06 Nasal, Sinus - Swab Respiratory Panel (PCR) - Final Human Rhinovirus/Enterovirus Medications Given: Albuterol (Proventil Neb) 3 ml IH QID [facility] Stop: 12/19/18 05:59 Last Admin: 06/22/18 17:15 Dose: 3 ml Apixaban (Eliquis) 2.5 mg PO BID BRIA Stop: 12/18/18 22:44 Last Admin: 06/22/18 09:41 Dose: 2.5 mg Azithromycin (Zithromax) 250 mg PO DAILY BRIA PRN Reason: Protocol Stop: 07/22/18 11:44 Last Admin: 06/22/18 12:58 Dose: 250 mg Calcium Carbonate (Tums) 500 mg PO DAILY BRIA Stop: 12/19/18 08:59 Last Admin: 06/22/18 09:41 Dose: 500 mg Cefuroxime Axetil (Ceftin) 250 mg PO BID BRIA PRN Reason: Protocol Stop: 07/22/18 11:44 Last Admin: 06/22/18 12:59 Dose: 250 mg Diltiazem HCl (Dilacor Xr) 240 mg PO DAILY BRIA Stop: 12/19/18 08:59 Last Admin: 06/22/18 09:41 Dose: 240 mg Fluticasone Propionate (Flonase Nasal [place]) 1 sprays EACHNARE DAILY BRIA Stop: 12/19/18 08:59 Last Admin: 06/22/18 10:29 Dose: 1 spray Sodium Chloride (Ns) 1,000 mls @ 125 mls/hr IV CONT BRIA Stop: 12/18/18 22:44 Last Admin: 06/22/18 07:15 Dose: 1,000 mls Miscellaneous Medication (Fluticasone/Vilanterol [Breo Ellipta 100-25 Mcg Inh]) 1 inh IH DAILY BRIA Stop: 12/19/18 08:59 Last Admin: 06/22/18 09:43 Dose: Not Given Miscellaneous Medication (Folic Acid [Folic Acid]) 0.4 mg PO DAILY BRIA Stop: 12/19/18 08:59 Last Admin: 06/22/18 10:25 Dose: Not Given Miscellaneous Medication (Icy Hot Lidocaine/Menthol 4%/1% Patch) 1 patch TD DAILY BRIA Stop: 12/19/18 08:59 Last Admin: 06/22/18 09:40 Dose: 1 patch [id number] Ethyl Esters (Fish Oil) 1,000 mg PO DAILY BRIA Stop: 12/19/18 08:59 Last Admin: 06/22/18 09:40 Dose: 1,000 mg Prednisone (Prednisone) 20 mg PO DAILY BRIA Stop: 12/19/18 11:44 Last Admin: 06/22/18 12:59 Dose: 20 mg Senna (Senokot) 1 tab PO DAILY BRIA Stop: 12/19/18 08:59 Last Admin: 06/22/18 09:41 Dose: 1 tab Spironolactone (Aldactone) 25 mg PO DAILY BRIA Stop: 12/19/18 08:59 Last Admin: 06/22/18 09:40 Dose: 25 mg Vitamin B Complex (Vitamin B12) 1,000 mcg PO DAILY BRIA Stop: 12/19/18 08:59 Last Admin: 06/22/18 09:41 Dose: 1,000 mcg Discontinued Medications Acetaminophen (Tylenol Rectal) 650 mg [facility] EDNOW ONE Stop: 06/21/18 19:11 Last Admin: 06/21/18 19:11 Dose: 650 mg Ceftriaxone Sodium/Dextrose (Rocephin 1 Gm (Premix)) 50 mls @ 100 mls/hr IV EDNOW ONE PRN Reason: Protocol Stop: 06/21/18 20:13 Last Admin: 06/21/18 19:51 Dose: 50 mls Lactated Ringer's (Lr) 1,600 mls @ 3,200 mls/hr 30 ml/kg infuse over 30 min ( 1600 ml) IV EDNOW ONE PRN Reason: Protocol Stop: 06/21/18 20:13 Last Admin: 06/21/18 19:56 Dose: 1,600 mls Azithromycin 500 mg/ Sodium (Chloride) 255 mls @ 255 mls/hr IV EDNOW ONE PRN Reason: Protocol Stop: 06/21/18 20:47 Last Admin: 06/21/18 20:19 Dose: 255 mls Methylprednisolone Sodium Succinate (Solu-Medrol) 60 mg IVP Q6HRS [facility] Stop: 12/19/18 00:00 Last Admin: 06/22/18 05:58 Dose: 60 mg Pneumococcal 13-Valent Conj Vacc (Prevnar 13 Syringe) 0.5 ml IM .ONCE ONE Stop: 06/22/18 13:15 Last Admin: 06/22/18 14:36 Dose: 0.5 ml Departure - Departure Disposition: [facility] Acute Clinical Impression: Sepsis Qualifiers: Sepsis type: sepsis due to unspecified organism Qualified Code(s): A41.9 - Sepsis, unspecified organism Urinary tract infection Qualifiers: Urinary tract infection type: acute cystitis Hematuria presence: without hematuria Qualified Code(s): N30.00 - Acute cystitis without hematuria Pneumonia Qualifiers: Pneumonia type: due to unspecified organism Laterality: left Lung location: lower lobe of lung Qualified Code(s): J18.1 - Lobar pneumonia, unspecified organism Condition: Fair
[2018-06-21] MEDS ORDERED: ACETAMINOPHEN 650 MG SUPP PR ONE ×2 (18:53→19:10)
[2018-06-21 19:13] LABS: PLATELET COUNT 191 10^3/uL (150-400)
[2018-06-21 19:22] LABS: INR 1.27 (0.83-1.16); PROTIME(PATIENT) 16.1 SEC (12.0-15.0)
[2018-06-21] MEDS ORDERED: LR IV ONE (19:44)
[2018-06-21] MEDS ORDERED: AZITHROMYCIN IV 500 MG in NS 250 ML IV ONE (19:48)
[2018-06-21] MEDS ORDERED: ONDANSETRON DISINTEGRATING 4 MG TAB PO PRN (22:33)
[2018-06-21] MEDS ORDERED: ONDANSETRON 4 MG/2 ML VIAL IVP PRN (22:33)
[2018-06-21] MEDS ORDERED: ACETAMINOPHEN 325 MG TAB PO PRN (22:33)
[2018-06-21] MEDS ORDERED: ACETAMINOPHEN 500 MG TAB PO PRN (22:35)
[2018-06-21] MEDS ORDERED: ALBUTEROL 3 ML DEYVIAL IH PRN (22:35)
[2018-06-21] MEDS ORDERED: POLYETHYLENE GLYCOL 3350 17 GM PKT PO PRN (22:35)
[2018-06-21] MEDS ORDERED: D5W 1/2 NS W/ 20 KCl/L 1,000 ML IV SCH (22:45)
[2018-06-21] MEDS: APIXABAN 2.5 MG TAB PO SCH (23:37)
[2018-06-21] MEDS: methylPREDNISolone SOD SUCC 125 MG/2 ML VIAL IVP SCH (23:37)
[2018-06-21] MEDS: NS 1,000 ML IV SCH (23:37)
--- NOTE | 2018-06-22 00:12 | GHP ---
DATE OF ADMISSION: 06/21/2018 REASON FOR ADMISSION: Fever, cough, possible pneumonia, possible urinary tract infection, recent fal l. HISTORY OF PRESENT ILLNESS: The patient is an 82-year-old female with known issues with aspiration p neumonia, prior pneumonia, multiple falls, intermittent rapid atrial fibrillation, chronic loida well controlled on current medications, who was doing well after recovering from a hospitalization for as piration pneumonia a couple of months ago when she had a fall yesterday. Today, she had a fever with increasing cough. For this reason, she was brought to the ER. She was found to have an elevated te mperature. An upper respiratory pathogen test is positive for human rhinovirus/enterovirus. Rapid f tano negative. Blood culture and urine cultures are pending. She has been given IV antibiotics in the form of Rocephin and Zithromax. She has some improvement. She still feels her lungs are somewhat h eavy and congested. She denies chest pain or palpitations. She denies any injury to her head or hea dache. She denies any gastrointestinal complaints. She denies clear urinary burning or stinging. S he denies new musculoskeletal pain from her fall yesterday. PAST MEDICAL HISTORY: Significant for chronic leukemia with elevated neutrophils between 15,000 and 20,000; prior history of DVT; prior history of intermittent atrial fibrillation, generally controlled on diltiazem. When she gets sick, this tends to be more of a problem. She is on chronic Eliquis fo r this reason. Insomnia, allergic rhinitis, gait instability. MEDICATIONS: Currently Eliquis 2.5 b.i.d., diltiazem ER 240 mg once daily, spironolactone 25 mg once daily, multiple supplements, olanzapine 15 mg at h.s., lidocaine patch to areas of pain p.r.n. need, Advair Diskus daily. SURGICAL HISTORY: Prior treatment for partially collapsed lung. HOSPITALIZATIONS: Most recently for aspiration pneumonia x2, more remote history of blood clot. SOCIAL HISTORY: She is . She lives in assisted living. Her son is involved in her care. To gonzalez does not smoke or drink. FAMILY HISTORY: Mother in older age. She did have Alzheimer's, high blood pressure, migraine h istory. Father's history is unknown. Sister, twin, of breast cancer at 39. Another sister d at 47 of breast cancer. REVIEW OF SYSTEMS: Patient's history is somewhat limited. She does admit to cough and feeling like she has a cold. No headache. No acute nasal issues with bleeding. She does admit to stuffiness. N o ear pain or fullness. Minimal sore throat difficulties, but chewing and swallowing have improved a s she has gotten stronger after being significantly weak from prior aspiration pneumonia. She denies shortness of breath. She does admit to a somewhat heavy, challenging cough. Nebulizer therapies pe rhaps have given her some benefit. No chest pain or palpitations. Appetite has been good. No nause a or vomiting. No GI distress. No diarrhea. Urinary complaints: No clear issues. She denies pain from fall. No skin injury. She denies bruising. PHYSICAL EXAM: VITAL SIGNS: Temperature initially 38.9, blood pressure initially 120/59, heart rate 88, saturation 99% on 2 L. Low blood pressure during ER visit, 99/47. Vital signs have otherwise b een stable. Temperature has improved to 37.3. GENERAL: Pleasant, elderly, thin female. She recogn izes me. She is not really able to provide that much of a history. HEENT: Head does not look traum atic. Pupils are symmetric. Speech is appropriate. There is a nasal cannula in place. NECK: With out masses. No pain with neck range of motion. LUNGS: There is a bit of a sense of a wheeze when p atient expires. She is not able to induce a cough spontaneously. HEART: Regular rate and rhythm. ABDOMEN: Positive bowel sounds. Soft, nontender, nondistended. SKIN: Grossly warm, dry, intact. EXTREMITIES: No evidence of lower extremity edema. No gross bony tenderness to palpation. DATABASE: White count 19.2, hemoglobin 11.8, platelets 191. INR 1.27. Lactic acid 1.4, normal rang e. Metabolic panel: Sodium mildly low at 121, BUN mildly elevated at 28, potassium 5.2, sugar 141. Urine with a lot of white blood cells. Respiratory panel, human rhinovirus/enterovirus, blood cultu re, and urine cultures are pending. Chest x-ray: Possible left lower lobe atelectasis. Increased b ronchial markings on my inspection. ASSESSMENT: 1. Fever, identification of viral agents, prior history of pneumonia with moderate severity in the n ot too distant past. She has been given Rocephin and Zithromax in the emergency room. Will continue these medications. Will add Solu-Medrol intravenous given coarseness to breath sounds currently to see if we can reduce some of the inflammation and improve her breathing. Add scheduled albuterol neb ulizer treatment. 2. Intermittent rapid atrial fibrillation. Current sinus rhythm. Continue with Eliquis. Continue diltiazem. 3. Chronic loida, well controlled olanzapine. Continue current schedule. 4. Chronic myelogenous leukemia. White count is in her typical range. Will follow this during her hospital stay. She generally looks fairly close to her baseline, except for fever and mildly lower b lood pressure. Will give supportive fluids tonight. She may be able to convert to oral medications and go back to assisted living tomorrow. /[id number]/MODL
[2018-06-22 05:17] LABS: PLATELET COUNT 160 10^3/uL (150-400)
[2018-06-22] MEDS: ALBUTEROL 3 ML DEYVIAL IH SCH ×4 (05:42→21:46)
[2018-06-22] MEDS: methylPREDNISolone SOD SUCC 125 MG/2 ML VIAL IVP SCH (05:58)
[2018-06-22] MEDS: NS 1,000 ML IV SCH (07:15)
--- NOTE | 2018-06-22 08:24 | SOAPPROG ---
SOAP Progress Note Assessment/Plan: Assessment: 82 yo female with h/o dementia, chronic afib without anticoagulation, leukemia, and COPD who was sent by senior living yesterday due to increased shakiness and intermittent pain. Resp panel showed enterovirus/ human rhinovirus. White count was elevated at 19,000. She has a h/o aspiration pna and was started empirically on azithro/rocephin and has had improvement symptomatically as well as in white count over night. Plan: Human rhinovirus - supportive care, fluids Possible pneumonia - h/o aspiration PNA. Wet, hacking cough likely due to underlying PNA. White count responded nicely to abx over night, will continue azithro and cephalosporin. Dementia - currently at baseline Afib - rate controlled, stable Leukemia - followed outpt Dispo - possibly home this afternoon if she is able to eat and move around a bit this morning 06/22/18 08:20 Subjective: Shonna reports that she feels much better this morning. Not as shaky, still has cough but feels better. Objective: Vital Signs Temp Pulse Resp BP Pulse Ox 36.8 C 95 16 123/62 H 95 06/22/18 08:00 06/22/18 08:00 06/22/18 08:00 06/22/18 08:00 06/22/18 08:00 Laboratory Results 06/22/18 04:25 06/22/18 04:25 06/21/18 06/22/18 06/23/18 05:59 05:59 05:59 Intake Total 2795 155 Output Total 1300 Balance 1495 155 PT 16.1 SEC (12.0-15.0) H 06/21/18 19:00 INR 1.27 (0.83-1.16) H 06/21/18 19:00 Gen- alert, appropriate, vitals stable Head- normocephalic, atraumatic Resp- diffusely coarse, harsh productive cough during exam CV- irregularly irregular, rate controlled Abd- SNT non distended, + BS Extremities- no peripheral edema ICD10 Worksheet Patient Problems: Problems Problem Status Onset Pneumonia Acute Sepsis Acute Urinary tract infection Acute Aspiration pneumonia Acute Leukocytosis Acute Respiratory distress Acute Severe sepsis Acute chronic disease [facility]/transitional care Acute
[2018-06-22] MEDS ORDERED: Herbals/Supplements -Info Only PO SCH (09:00)
[2018-06-22] MEDS: SPIRONOLACTONE 25 MG TAB PO SCH (09:40)
[2018-06-22] MEDS: LIDOCAINE 4%/MENTHOL 1% PATCH TD SCH (09:40)
[2018-06-22] MEDS: OMEGA-3 FATTY ACIDS 1,000 MG CAP PO SCH (09:40)
[2018-06-22] MEDS: SENNOSIDES 1 TAB PO SCH (09:41)
[2018-06-22] MEDS: DILTIAZEM XR 240 MG CAP PO SCH (09:41)
[2018-06-22] MEDS: APIXABAN 2.5 MG TAB PO SCH ×2 (09:41→21:13)
[2018-06-22] MEDS: CALCIUM CARBONATE 500 MG CHEWABLE TAB PO SCH (09:41)
[2018-06-22] MEDS: CYANO/VITAMIN B12 1000 MCG TAB PO SCH (09:41)
[2018-06-22] MEDS: FLUTICASONE IH SCH (09:43)
[2018-06-22] MEDS: VILANTEROL IH SCH (09:43)
[2018-06-22] MEDS: FOLIC ACID 0.4 MG PO SCH (10:25)
[2018-06-22] MEDS: FLUTICASONE NASAL 120 SPRAYS/16 GM MDI EACHNARE SCH (10:29)
[2018-06-22] MEDS: AZITHROMYCIN 250 MG TAB PO SCH (12:58)
[2018-06-22] MEDS: CEFUROXIME AXETIL 250 MG TAB PO SCH ×2 (12:59→21:14)
[2018-06-22] MEDS: predniSONE 20 MG TAB PO SCH (12:59)
[2018-06-22] MEDS ORDERED: PNEUMOC 13-VAL CONJ-DIP CRM/PF 0.5 ML SYR (PREVNAR 13) IM ONE (13:14)
--- NOTE | 2018-06-22 14:13 | GDS ---
ADMITTING DIAGNOSIS: Human rhinovirus. HISTORY OF PRESENT ILLNESS: Patient is a very pleasant 82-year-old who presented from her [facility] facility to the emergency department with increased cough and fever. She has a history of prio r pneumonia, multiple falls, intermittent atrial fibrillation with RVR, chronic loida, currently well controlled on medications, and dementia. She was recently hospitalized with aspiration pneumonia a couple of months ago. On arrival to the emergency department, she was found to have an elevated temp erature. Her respiratory pathogen panel was positive for human rhinovirus/enterovirus. Rapid flu wa s negative. Blood cultures and urine cultures are pending. She was started on IV Rocephin and azith romycin. She had an elevated white count at 19,000, does have underlying leukemia. Overnight, she h ad marked improvement after initiation of antibiotic therapy. White count this morning was down to 1 2,000, and she overall felt much better. She does have a rhonchorous, wet cough suggestive of some u nderlying pneumonia in addition to this virus. She was started on Solu-Medrol last evening with impr ovement of her cough and respiratory symptoms. She will be discharged back to her assisted living [facility] on antibiotics and prednisone. DISCHARGE MEDICATIONS: Include azithromycin 250 mg p.o. daily x3 days; Ceftin 250 mg p.o. b.i.d. x10 days; prednisone 20 mg p.o. daily x5 days; albuterol 3 mL inhaled q.2 hours p.r.n. dyspnea; Breo 1 p uff daily; vitamin B12 1000 mcg p.o. daily; diltiazem 240 mg p.o. daily; Eliquis 2.5 mg p.o. b.i.d.; Flonase 1 spray each naris daily; folic acid 0.4 mg p.o. daily; MiraLAX 17 g p.o. q.12 hours p.r.n. c onstipation; olanzapine 15 mg p.o. q.h.s.; spironolactone 25 mg p.o. daily; acetaminophen 500 mg p.o. q.6 hours p.r.n. pain; Tums 500 mg p.o. daily; multivitamin 1 tablet p.o. daily, acetaminophen 500 m g p.o. q.h.s.; Senokot 8.6 mg p.o. daily; lidocaine 5% patch, 1 patch transdermally daily; fish oil o stephanie-3 1000 mg p.o. daily. FOLLOWUP: The patient will follow up in the office on Monday with her PCP. /[id number]/MODL
--- NOTE | 2018-06-22 15:07 | ASMTCMCOM ---
CM Note CM Note Notes: CM met with pt and discussed plan with daughter. PT/OT are recommending SNF. Pt reports she has been to [facility] in the past. CM submit referral to [facility]. CM spoke with pt's son, Asim- [phone] to update pt. CM also notified RN from [facility] ([phone], F:[phone]) to inform of plan. CM to follow. Plan: [facility]. Date Signed: 06/22/2018 03:06 PM Electronically Signed By:JERONIMO Matthews
[2018-06-22] MEDS ORDERED: AZITHROMYCIN IV 250 MG in NS 250 ML IV SCH (20:00)
[2018-06-22] MEDS: OLANZapine 10 MG TAB PO SCH (21:14)
[2018-06-23] MEDS: ALBUTEROL 3 ML DEYVIAL IH SCH ×4 (05:01→21:16)
--- NOTE | 2018-06-23 10:05 | SOAPPROG ---
SOCANDELARIO Progress Note Assessment/Plan: Assessment: Plan: 06/23/18 10:05 Viral URI: doing well Possible pneumonia: remains on Azithromycin, cefuroxime. Lungs clear. WBC coming down UTI: preliminary cx positive for E. faecalis which would not be covered by above antibx regimen. Will add macrodantin as she is allergic to pcn. Atrial fibrillation: stable Dementia: alert, bright today. Aware she is going to SNF Anemia: mild. Will monitor. Dispo: hopefully d/c to SNF tomorrow for rehab prior to returning to [place] 06/23/18 10:08 06/23/18 10:09 Subjective: Feeling much better. Still has cough but it is less. Looking forward to going to rehab, hopefully tomorrow. Objective: Vital Signs Temp Pulse Resp BP Pulse Ox 36.4 C 69 18 109/63 91 L 06/23/18 08:00 06/23/18 08:00 06/23/18 08:00 06/23/18 08:00 06/23/18 08:00 Laboratory Results 06/22/18 04:25 06/22/18 04:25 06/22/18 06/23/18 06/24/18 05:59 05:59 05:59 Intake Total 2795 305 Output Total 1300 1275 Balance 1495 -970 PT 16.1 SEC (12.0-15.0) H 06/21/18 19:00 INR 1.27 (0.83-1.16) H 06/21/18 19:00 General: awake, alert, clear Neck: no masses, adenopathy Lungs: clear bilaterally Cardiovascular: irregularly irregular Abdomen: +BS, soft, NT Extremities: no edema ICD10 Worksheet Patient Problems: Problems Problem Status Onset Pneumonia Acute Sepsis Acute Urinary tract infection Acute Aspiration pneumonia Acute Leukocytosis Acute Respiratory distress Acute Severe sepsis Acute chronic disease [facility]/transitional care Acute
[2018-06-23] MEDS: predniSONE 20 MG TAB PO SCH (10:06)
[2018-06-23] MEDS: CEFUROXIME AXETIL 250 MG TAB PO SCH ×2 (10:06→19:59)
[2018-06-23] MEDS: SENNOSIDES 1 TAB PO SCH (10:06)
[2018-06-23] MEDS: AZITHROMYCIN 250 MG TAB PO SCH (10:06)
[2018-06-23] MEDS: APIXABAN 2.5 MG TAB PO SCH ×2 (10:06→19:59)
[2018-06-23] MEDS: DILTIAZEM XR 240 MG CAP PO SCH (10:07)
[2018-06-23] MEDS: OMEGA-3 FATTY ACIDS 1,000 MG CAP PO SCH (10:08)
[2018-06-23] MEDS: CYANO/VITAMIN B12 1000 MCG TAB PO SCH (10:09)
[2018-06-23] MEDS: SPIRONOLACTONE 25 MG TAB PO SCH (10:09)
[2018-06-23] MEDS: FLUTICASONE NASAL 120 SPRAYS/16 GM MDI EACHNARE SCH (10:10)
[2018-06-23] MEDS: FOLIC ACID 0.4 MG PO SCH (10:16)
[2018-06-23] MEDS: VILANTEROL IH SCH (10:16)
[2018-06-23] MEDS: FLUTICASONE IH SCH (10:16)
--- NOTE | 2018-06-23 11:03 | PDMN ---
Medical Necessity Medical necessity: Pt meets INPT criteria per MD as of 06/23/18 and MCG Systemic or Infectious Condition GRG (LOS >2 MN for ongoing eval/mgmt of UTI, viral URI, possible pneumonia; comorbid afib, dementia, anemia, CML).
[2018-06-23] MEDS: LIDOCAINE 4%/MENTHOL 1% PATCH TD SCH (11:13)
[2018-06-23] MEDS: NITROFURANTOIN MACROBID 100 MG CAP PO SCH ×2 (11:20→19:59)
[2018-06-23] MEDS: CALCIUM CARBONATE 500 MG CHEWABLE TAB PO SCH (11:20)
[2018-06-23] MEDS: OLANZapine 10 MG TAB PO SCH (19:58)
[2018-06-24] MEDS: ALBUTEROL 3 ML DEYVIAL IH SCH ×4 (04:52→19:50)
[2018-06-24 05:55] LABS: PLATELET COUNT 168 10^3/uL (150-400)
[2018-06-24] MEDS: FLUTICASONE IH SCH (08:19)
[2018-06-24] MEDS: VILANTEROL IH SCH (08:19)
[2018-06-24] MEDS: LIDOCAINE 4%/MENTHOL 1% PATCH TD SCH (09:12)
[2018-06-24] MEDS: CYANO/VITAMIN B12 1000 MCG TAB PO SCH (09:13)
[2018-06-24] MEDS: CEFUROXIME AXETIL 250 MG TAB PO SCH ×2 (09:13→19:59)
[2018-06-24] MEDS: CALCIUM CARBONATE 500 MG CHEWABLE TAB PO SCH (09:13)
[2018-06-24] MEDS: AZITHROMYCIN 250 MG TAB PO SCH (09:13)
[2018-06-24] MEDS: APIXABAN 2.5 MG TAB PO SCH ×2 (09:13→19:59)
[2018-06-24] MEDS: DILTIAZEM XR 240 MG CAP PO SCH (09:14)
[2018-06-24] MEDS: FLUTICASONE NASAL 120 SPRAYS/16 GM MDI EACHNARE SCH (09:14)
[2018-06-24] MEDS: predniSONE 20 MG TAB PO SCH (09:17)
[2018-06-24] MEDS: OMEGA-3 FATTY ACIDS 1,000 MG CAP PO SCH (09:17)
[2018-06-24] MEDS: SENNOSIDES 1 TAB PO SCH (09:17)
[2018-06-24] MEDS: SPIRONOLACTONE 25 MG TAB PO SCH (09:17)
[2018-06-24] MEDS: NITROFURANTOIN MACROBID 100 MG CAP PO SCH ×2 (09:17→19:58)
[2018-06-24] MEDS: FOLIC ACID 0.4 MG PO SCH (11:22)
--- NOTE | 2018-06-24 11:26 | SOAPPROG ---
SOAP Progress Note Assessment/Plan: Assessment: Plan: 06/23/18 10:05 Viral URI: doing well Possible pneumonia: remains on Azithromycin, cefuroxime. Lungs clear. WBC coming down UTI: preliminary cx positive for E. faecalis which would not be covered by above antibx regimen. Will add macrodantin as she is allergic to pcn. Atrial fibrillation: stable Dementia: alert, bright today. Aware she is going to SNF Anemia: mild. Will monitor. Dispo: hopefully d/c to SNF tomorrow for rehab prior to returning to [place] 06/23/18 10:08 06/23/18 10:09 06/24/18 11:25 Viral URI: appears resolved Possible pneumonia: remains on antibiotics. O2 saturations somewhat variable. WBC up today from yesterday, but is generally elevated due to CML. No respiratory distress. Anemia: continue to monitor Dispo: changed to inpt status yesterday, so must be inpt 3 nights prior to d/c to SNF. Anticipate d/c Tu06/26. 06/24/18 11:26 Subjective: Sitting in chair, comfortable, no complaints. States cough is better, less productive. Objective: Vital Signs Temp Pulse Resp BP Pulse Ox 36.8 C 85 16 130/77 H 91 L 06/24/18 08:00 06/24/18 10:50 06/24/18 10:50 06/24/18 09:14 06/24/18 10:50 Laboratory Results 06/24/18 05:20 06/23/18 06/24/18 06/25/18 05:59 05:59 05:59 Intake Total 200 Output Total 650 Balance -450 PT 16.1 SEC (12.0-15.0) H 06/21/18 19:00 INR 1.27 (0.83-1.16) H 06/21/18 19:00 General: awake, alert, NAD Neck: no masses, adenopathy Lungs: diminished breath sounds in bases, o/w clear CV: regular, no murmur Abdomen: +bowel sounds, soft, NT Extremities: no edema ICD10 Worksheet Patient Problems: Problems Problem Status Onset Pneumonia Acute Sepsis Acute Urinary tract infection Acute Aspiration pneumonia Acute Leukocytosis Acute Respiratory distress Acute Severe sepsis Acute chronic disease mgmt/transitional care Acute
--- NOTE | 2018-06-24 11:49 | SOAPPROG ---
SOCANDELARIO Progress Note Assessment/Plan: Assessment: Plan: 06/23/18 10:05 Viral URI: doing well Possible pneumonia: remains on Azithromycin, cefuroxime. Lungs clear. WBC coming down UTI: preliminary cx positive for E. faecalis which would not be covered by above antibx regimen. Will add macrodantin as she is allergic to pcn. Atrial fibrillation: stable Dementia: alert, bright today. Aware she is going to SNF Anemia: mild. Will monitor. Dispo: hopefully d/c to SNF tomorrow for rehab prior to returning to [place] 06/23/18 10:08 06/23/18 10:09 06/24/18 11:25 Viral URI: appears resolved Possible pneumonia: remains on antibiotics. O2 saturations somewhat variable. WBC up today from yesterday, but is generally elevated due to CML. No respiratory distress. Anemia: continue to monitor Dispo: changed to inpt status yesterday, so must be inpt 3 nights prior to d/c to SNF. Anticipate d/c 06/26. 06/24/18 11:26 06/24/18 11:47 Addendum: UTI. Cx positive for E. faecalis is sensitive to nitrofurantoin, which pt was started on yesterday. Objective: Vital Signs Temp Pulse Resp BP Pulse Ox 36.8 C 85 16 130/77 H 91 L 06/24/18 08:00 06/24/18 10:50 06/24/18 10:50 06/24/18 09:14 06/24/18 10:50 Laboratory Results 06/24/18 05:20 06/23/18 06/24/18 06/25/18 05:59 05:59 05:59 Intake Total 200 Output Total 650 Balance -450 PT 16.1 SEC (12.0-15.0) H 06/21/18 19:00 INR 1.27 (0.83-1.16) H 06/21/18 19:00 ICD10 Worksheet Patient Problems: Problems Problem Status Onset Pneumonia Acute Sepsis Acute Urinary tract infection Acute Aspiration pneumonia Acute Leukocytosis Acute Respiratory distress Acute Severe sepsis Acute chronic disease mgmt/transitional care Acute
[2018-06-24] MEDS: OLANZapine 10 MG TAB PO SCH (19:59)
[2018-06-25] MEDS: ALBUTEROL 3 ML DEYVIAL IH SCH ×4 (05:21→21:04)
[2018-06-25] MEDS: CALCIUM CARBONATE 500 MG CHEWABLE TAB PO SCH (09:20)
[2018-06-25] MEDS: SPIRONOLACTONE 25 MG TAB PO SCH (09:20)
[2018-06-25] MEDS: CEFUROXIME AXETIL 250 MG TAB PO SCH ×2 (09:20→21:17)
--- NOTE | 2018-06-25 09:20 | SOAPPROG ---
SOAP Progress Note Assessment/Plan: Assessment: 82 yo female with h/o dementia, chronic afib without anticoagulation, leukemia, and COPD who was sent by senior living due to increased shakiness and intermittent pain. Resp panel showed enterovirus/human rhinovirus. White count was elevated at 19,000. She has a h/o aspiration pna and was started empirically on azithro/rocephin and has had improvement. Plan: Human rhinovirus - resolved, resp status stable Possible pneumonia - continue abx, improvement in symptoms, white count slightly elevated yesterday, though chronically elevated due to CML. Dementia - currently at baseline Afib - rate controlled, stable CML - followed outpt Dispo - required to stay 3 nights as inpt to qualify for SNF. Plan to d/c to SNF tomorrow, unless cleared by PT/OT to d/c home 06/25/18 09:16 Subjective: Shonna is resting comfortably in bed this morning, says her cough is much improved and she is wondering if she may be strong enough to d/c home instead of rehab. Objective: Vital Signs Temp Pulse Resp BP Pulse Ox 36.2 C 80 16 131/74 H 94 06/25/18 08:00 06/25/18 08:00 06/25/18 08:00 06/25/18 08:00 06/25/18 08:00 Laboratory Results 06/24/18 05:20 06/24/18 06/25/18 06/26/18 05:59 05:59 05:59 Intake Total 200 Output Total 650 1500 200 Balance -450 -1500 -200 PT 16.1 SEC (12.0-15.0) H 06/21/18 19:00 INR 1.27 (0.83-1.16) H 06/21/18 19:00 Gen- vitals stable, alert, appropriate Head- normocephalic, atraumatic Resp- fine crackling to bases but markedly improved lung sounds from admission CV- S1S2, RRR, no murmurs, rubs, gallops Abd- SNT, nondistended, + BS Skin- warm and dry Extremities- no peripheral edema ICD10 Worksheet Patient Problems: Problems Problem Status Onset Pneumonia Acute Sepsis Acute Urinary tract infection Acute Aspiration pneumonia Acute Leukocytosis Acute Respiratory distress Acute Severe sepsis Acute chronic disease [facility]/transitional care Acute
[2018-06-25] MEDS: predniSONE 20 MG TAB PO SCH (09:21)
[2018-06-25] MEDS: DILTIAZEM XR 240 MG CAP PO SCH (09:21)
[2018-06-25] MEDS: NITROFURANTOIN MACROBID 100 MG CAP PO SCH ×2 (09:21→21:18)
[2018-06-25] MEDS: SENNOSIDES 1 TAB PO SCH (09:21)
[2018-06-25] MEDS: AZITHROMYCIN 250 MG TAB PO SCH (09:21)
[2018-06-25] MEDS: OMEGA-3 FATTY ACIDS 1,000 MG CAP PO SCH (09:21)
[2018-06-25] MEDS: APIXABAN 2.5 MG TAB PO SCH ×2 (09:21→21:18)
[2018-06-25] MEDS: CYANO/VITAMIN B12 1000 MCG TAB PO SCH (09:21)
[2018-06-25] MEDS: LIDOCAINE 4%/MENTHOL 1% PATCH TD SCH (09:27)
[2018-06-25] MEDS: FOLIC ACID 0.4 MG PO SCH (09:46)
[2018-06-25] MEDS: FLUTICASONE IH SCH (10:35)
[2018-06-25] MEDS: VILANTEROL IH SCH (10:35)
[2018-06-25] MEDS: FLUTICASONE NASAL 120 SPRAYS/16 GM MDI EACHNARE SCH (11:16)
--- NOTE | 2018-06-25 14:22 | ASMTCMCOM ---
CM Note CM Note Notes: Pt admitted for pnemonia and UTI, therapies recommended SNF. Pt accepted to [facility], will likely dc Monday. Update sent to [facility]. Pt lives at [facility] and has dementia DC Plan: [facility] Date Signed: 06/24/2018 03:06 PM Electronically Signed By:Frieda Arana RN
[2018-06-25] MEDS: OLANZapine 10 MG TAB PO SCH (21:18)
[2018-06-26] MEDS: ALBUTEROL 3 ML DEYVIAL IH SCH ×2 (05:34→09:53)
[2018-06-26] MEDS: SENNOSIDES 1 TAB PO SCH (08:04)
[2018-06-26] MEDS: OMEGA-3 FATTY ACIDS 1,000 MG CAP PO SCH (08:04)
[2018-06-26] MEDS: APIXABAN 2.5 MG TAB PO SCH (08:05)
[2018-06-26] MEDS: CEFUROXIME AXETIL 250 MG TAB PO SCH (08:05)
[2018-06-26] MEDS: AZITHROMYCIN 250 MG TAB PO SCH (08:05)
[2018-06-26] MEDS: SPIRONOLACTONE 25 MG TAB PO SCH (08:05)
[2018-06-26] MEDS: predniSONE 20 MG TAB PO SCH (08:05)
[2018-06-26] MEDS: NITROFURANTOIN MACROBID 100 MG CAP PO SCH (08:05)
[2018-06-26] MEDS: CALCIUM CARBONATE 500 MG CHEWABLE TAB PO SCH (08:05)
[2018-06-26] MEDS: CYANO/VITAMIN B12 1000 MCG TAB PO SCH (08:05)
[2018-06-26 08:12] VITALS: BP 134/72
[2018-06-26] MEDS: DILTIAZEM XR 240 MG CAP PO SCH (08:12)
[2018-06-26] MEDS: FLUTICASONE NASAL 120 SPRAYS/16 GM MDI EACHNARE SCH (08:13)
[2018-06-26] MEDS: FLUTICASONE IH SCH (08:15)
[2018-06-26] MEDS: VILANTEROL IH SCH (08:15)
[2018-06-26] MEDS: FOLIC ACID 0.4 MG PO SCH (08:15)
[2018-06-26] MEDS: LIDOCAINE 4%/MENTHOL 1% PATCH TD SCH (08:16)
--- NOTE | 2018-06-26 08:57 | SOAPPROG ---
SOAP Progress Note Assessment/Plan: Assessment: 82 yo female with h/o dementia, chronic afib without anticoagulation, leukemia, and COPD who was sent by retirement due to increased shakiness and intermittent pain. Resp panel showed enterovirus/human rhinovirus. White count was elevated at 19,000. She has a h/o aspiration pna and was started empirically on azithro/rocephin and has had improvement. Plan: Human rhinovirus - resolved, resp status stable Possible pneumonia - continue abx, improvement in symptoms, white count chronically elevated due to CML. Dementia - currently at baseline Afib - rate controlled, stable CML - followed outpt Dispo - required to stay 3 nights as inpt to qualify for SNF. Plan to d/c to SNF today 06/26/18 08:55 Subjective: Resting comfortably in the chair this AM. Ate breakfast, eager to d/c. Says she is feeling much better. Objective: Vital Signs Temp Pulse Resp BP Pulse Ox 36.4 C 89 18 134/72 H 93 06/26/18 08:09 06/26/18 08:09 06/26/18 08:09 06/26/18 08:09 06/26/18 08:09 Laboratory Results 06/24/18 05:20 06/25/18 06/26/18 06/27/18 05:59 05:59 05:59 Intake Total 850 Output Total 1500 200 Balance -1500 650 PT 16.1 SEC (12.0-15.0) H 06/21/18 19:00 INR 1.27 (0.83-1.16) H 06/21/18 19:00 Gen- alert, appropriate, vitals stable Head- normocephalic, atraumatic Resp- mild wheezing and fine crackling to bases but overall improved lung sounds , moving air well, on RA CV- RRR, no murmurs, rubs, gallops Abd- SNT, nondistended, + BS Extremities- no peripheral edema ICD10 Worksheet Patient Problems: Problems Problem Status Onset Pneumonia Acute Sepsis Acute Urinary tract infection Acute Aspiration pneumonia Acute Leukocytosis Acute Respiratory distress Acute Severe sepsis Acute chronic disease mgmt/transitional care Acute
--- NOTE | 2018-06-26 10:01 | PDIAF ---
- Diagnosis Diagnosis: Pneumonia, Viral URI Code Status: Do Not Resuscitate - Medication Management Discharge Medications: electronically signed and located in the Home Medication List. - Orders Isolation Type: Droplet Isolation Diet Recommendation: no restrictions on diet Diet Texture: Regular Texture Diet - Follow Up Care Current Providers and Referrals: Yancy Westbrook MD [Primary Care Provider] - As per Instructions
--- NOTE | 2018-06-26 10:39 | ASMTLACE ---
LACE Length of stay for Answers: 4-6 days current admission Acuity / Level of Answers: Yes Care: Did the patient have an inpatient admission? Comorbidities - select Answers: Any tumor (including all that apply lymphoma or leukemia) Chronic pulmonary disease Dementia Opioid dependence / Chronic pain Other Notes: AFib; DVT # of Emergency department Answers: 1-2 visits in the last 6 months Score: 20 Date Signed: 06/26/2018 10:38 AM Electronically Signed By:JERONIMO Parker
--- NOTE | 2018-06-26 11:04 | ASDISCHSUM ---
Discharge Information Plan Status:SNF Medically Cleared to Leave:06/25/2018 Discharge Date:06/25/2018 CM D/C Disposition: ADT D/C Disposition:Retirement Facility Projected Discharge Date:06/26/2018 11:00 AM Transportation at D/C: Discharge Delay Reason: Follow-Up Date:06/26/2018 11:00 AM Discharge Slot: Final Diagnosis: Placement Information Referral Type:*Fpc/SNF Referral ID:[id number] Provider Name:[facility] Address 1:[address] [facility] [address] Address 2: City:[place] Selection Factors: State:[place] Patient Contact Information Contact Name:MARY Relationship:Son Address:[address] City:[place] Alternate Phone: State/Zip Code:[place] [address] Email: Financial Information Financial Class:Medicare Primary Plan Desc:MEDICARE INPATIENT Primary Plan Number:[id number] Secondary Plan Desc: Secondary Plan Number: Assessment Information LACE LACE Length of stay for Answers: 4-6 days current admission Acuity / Level of Answers: Yes Care: Did the patient have an inpatient admission? Comorbidities - select Answers: Any tumor (including all that apply lymphoma or leukemia) Chronic pulmonary disease Dementia Opioid dependence / Chronic pain Other Notes: AFib; DVT # of Emergency department Answers: 1-2 visits in the last 6 months Score: 20 Date Signed: 06/26/2018 10:38 AM Electronically Signed By:JERONIMO Parker [facility] CM Progress Note CM Note CM Note Notes: CM met with pt and discussed plan with daughter. PT/OT are recommending SNF. Pt reports she has been to [facility] in the past. [facility] CM spoke with pt's son, Asim- [phone] to update pt. CM also notified RN from [facility] ([phone], F:[phone]) to inform of plan. CM to follow. Plan: [facility]. Date Signed: 06/22/2018 03:06 PM Electronically Signed By:JERONIMO Matthews [facility] Progress Note CM Note CM Note Notes: Pt admitted for pnemonia and UTI, therapies recommended SNF. Pt accepted to [facility], will likely dc Monday. Update sent to [facility]. Pt lives at [place] and has dementia DC Plan: [facility] Date Signed: 06/24/2018 03:06 PM Electronically Signed By:Frieda Arana RN Case Management Discharge Plan Note Case Management Discharge Discharge Order Complete? Answers: Yes Patient to Obtain Answers: Other Notes: [facility] Medications Transportation Arranged Answers: Other Notes: [facility] w/c transport Transport will Pick (Date 06/26/2018 11:00 AM & Time) EMTALA Complete Answers: No Case Management Transport Answers: No Form Complete Faxed Final Orders Answers: Yes Agency/Facility Transfer Answers: Yes Report Printed & Faxed to Receiving Agency Family Notified Answers: No Discharge Comments Notes: Pts case discussed w/ MEENA Ken. Pt is being d/c'd today to [facility]. DC orders sent. Suellen will call to give report. CM available for changes. Plan: [facility] Date Signed: 06/26/2018 11:04 AM Electronically Signed By:JERONIMO Parker Intervention Information Intervention Type:*MILIAN-Signed Date of Service:06/22/2018 11:53 AM Patient Type:Observation Staff Member:Alyce Carrillo Hours: Discipline: Severity: Comment:
--- NOTE | 2018-06-26 14:23 | GDS ---
PRIMARY DIAGNOSIS: Viral upper respiratory infection, pneumonia, urinary tract infection. HISTORY OF PRESENTING ILLNESS: The patient is an 82-year-old female who was admitted from her assist ed living facility, [facility], for fever and increasing cough. She has a history of pr ior pneumonia and was recently admitted for aspiration pneumonia a couple of months ago. She also connolly s a history of multiple falls, rapid atrial fibrillation, and chronic anemia, which is well controlle d on medications. On arrival to the hospital, she was found to have an elevated temperature. She was positive for yosef n rhinovirus/enterovirus. Her rapid flu was negative. Her chest x-ray was suggestive of possible pn eumonia, and she had an elevated white count of 19,000. 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 She was initially started on IV azithromycin and Rocephin and responded nicely to the antibiotics. Due to increased we akness and fatigue from both her viral URI and the pneumonia, Physical Therapy and Occupational Thera py recommended, and the patient was agreeable to discharge to a fci facility to regain he r strength prior to discharging back to [facility]. During her stay, it was found that she also had a p ositive urinary tract infection on the . She was started on Macrobid this weekend and will continu e on that on discharge. She will, as I mentioned above, discharge to [facility] rehab facility and th en ultimately discharge back to [facility] where she currently lives. She will plan to follow up in the office on discharge from rehab. DISCHARGE MEDICATIONS: Include Ceftin 200 mg p.o. t.i.d. x5 more days. She has completed the course of azithromycin. Will not discharge her on prednisone at this time. Macrobid 100 mg p.o. b.i.d. x7 more days, albuterol 2 puffs every 4 hours as needed p.r.n. for shortness of breath or wheezing, Nalini o 1 puff inhaled daily, vitamin B12 1000 mcg p.o. daily, diltiazem 240 mg p.o. daily, Eliquis 2.5 mg p.o. b.i.d., Flonase 1 spray each naris daily, folic acid 0.4 mg p.o. daily, MiraLAX 17 g p.o. q.12 h ours p.r.n. constipation, olanzapine 15 mg p.o. q.h.s., spironolactone 25 mg p.o. daily, acetaminophe n 500 mg p.o. q.6 hours p.r.n. pain, Tums 500 mg p.o. daily, herbal supplement 1 tablet p.o. daily, acetaminophen 500 mg p.o. q.h.s., senna 8.6 mg p.o. daily, lidocaine 5% transdermal patch 1 patch shiva lied daily, omega-3 fish oil 1000 mg p.o. daily. /[id number]/MODL
== END 2018-06-26 11:06 | DRG 152 ==
LOC: EDUNIT# → F3E 21:03 → OBSVTOIN 06-23 10:51
PROVIDERS: ADMIT Internal Medicine; ATTEND Internal Medicine
DX: J06.9 Acute upper respiratory infection, unspecified (principal); J18.9 Pneumonia, unspecified organism; N39.0 Urinary tract infection, site not specified; C92.10 Chronic myeloid leukemia, BCR/ABL-positive, not having achieved remission; B97.19 Other enterovirus as the cause of diseases classified elsewhere; R29.6 Repeated falls; I48.91 Unspecified atrial fibrillation; D53.9 Nutritional anemia, unspecified; Z23 Encounter for immunization; F03.90 Unspecified dementia, unspecified severity, without behavioral disturbance, psychotic disturbance, mood disturbance, and anxiety; Z80.3 Family history of malignant neoplasm of breast
CPT/HCPCS: 96365; 97116-GP; 97161-GP; 97166-GO; 97530-GP; 97535-GO; G0009; G0378; G8978-GP-CJ; G8979-GP-CI; G8987-GO-CK; G8988-GO-CI; J0456; J0696; J2405; J2930; J7512; J7613